=== PATIENT | male | born 1960 | race Caucasian/White ===

== ENCOUNTER 2016-12-08 13:50 | Inpatient (IN) ==
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
[2016-12-08 15:18] VITALS: BMI 65.7
--- NOTE | 2016-12-08 15:33 | IRU 24Hr Post Admit Eval ---
24 Hr Post Admission Physical - Relevant Changes Relevant Changes: No Reviewed: I have reviewed the patient's information and concur with the finding and results of the pre-admission screen. Certification: I certify the patient for rehabilitation. - Patient Condition (1) Myopathy Status: Acute Code(s): G72.9 - Myopathy, unspecified Classification: Present on IRF Admission, IRF Tx That Should Address Diagnosis (2) CHF, acute on chronic Status: Acute Qualifiers: Congestive heart failure type: unspecified congestive heart failure type Qualified Code(s): I50.9 - Heart failure, unspecified Code(s): I50.9 - Heart failure, unspecified Classification: Present on IRF Admission, IRF Tx That Should Address Diagnosis, Diagnosis Requiring Medical Follow Up (3) Atrial fibrillation with RVR Status: Acute Code(s): I48.91 - Unspecified atrial fibrillation Classification: Diagnosis Requiring Medical Follow Up, Other Contributing Factor (4) DM (diabetes mellitus), type 2 with neurological complications Status: Chronic Code(s): E11.49 - Type 2 diabetes mellitus with other diabetic neurological complication Classification: Present on IRF Admission, IRF Tx That Should Address Diagnosis, Diagnosis Requiring Medical Follow Up (5) Morbid obesity Status: Chronic Code(s): E66.01 - Morbid (severe) obesity due to excess calories Classification: Present on IRF Admission, IRF Tx That Should Address Diagnosis, Diagnosis Requiring Medical Follow Up (6) Respiratory failure, acute and chronic Status: Acute Qualifiers: Respiratory failure complication: hypoxia Qualified Code(s): J96.21 - Acute and chronic respiratory failure with hypoxia Code(s): J96.20 - Acute and chronic respiratory failure, unspecified whether with hypoxia or hypercapnia Classification: Present on IRF Admission, IRF Tx That Should Address Diagnosis, Diagnosis Requiring Medical Follow Up - Prior Functional Status Lives With: Children, Spouse Residence Type: Apartment/Private Home Assitive Devices: None Prior Functional Status: Indep. at home or school, Need assist w/ home ADL, Depend. w/ IADL, Unable to Work-2 Sx, Pain at Higher Intensity - Current Functional Status Failed Alternative Therapy: Arrived from Acute Care Patient Requirements: The patient requires oversight by rehabilitation physician to manage their rehabilitation treatment plan and multidisciplinary approach to care that can only be provided in an IRF and requires a multidisciplinary approach to care, provided by professional PTs, OTs, STs, dieticians, RTs, rehabilitation nurses and is not available in lesser levels of care. Limitiations Req: Mobility Impairment, ADL Impairment, Limited Mobility, Respiratory Impairment Physical Therapy Minutes: 90 Occupational Therapy Minutes: 90 Therapy: The patient is to receive therapy at least 5 days a week. ROM Deficit: Right Lower Extremity, Left Lower Extremity - Complications/Comorbidities Impact on Functional Outcomes: Therapy will address lower extremity dressing, transfers, ambulation and pursue energy conserving maneuvers. Barriers to Discharge: Weakness, Endurance, Pain Control, Medical Limitation - Plan to Avoid Complications Plan to Avoid Complications: The patient cannot receive this care in a lesser intensive setting such as Senior Care or Outpatient Therapy due to the patient requiring the following : Acute on chronic heart failure, acute on chronic respiratory failure, morbid obesity, diabetes mellitus with peripheral neuropathy, disuse myopathy characterized by proximal muscle weakness and severe weakness with any activity. He will require intensive individualized plan of care to involve physical therapy, occupational therapy, dietitian, rehabilitation nursing on a 24-hour basis and physician management at least 3 days weekly. .
[2016-12-08] MEDS ORDERED: GLUCOSE ORAL GEL 40% 37.5gm PO PRN (15:48)
[2016-12-08] MEDS ORDERED: ALBUTEROL/IPRATROPIUM 2.5mg-0.5mg/3ml NEB AEROSOL PRN (15:48)
[2016-12-08] MEDS ORDERED: GLUCAGON 1 MG INJECTION IM PRN (15:48)
[2016-12-08] MEDS ORDERED: LACRI-LUBE EYE OINT 3.5gm EACH EYE PRN (15:48)
[2016-12-08] MEDS ORDERED: REFRESH CLASSIC Eye Drops 0.4ml EACH EYE PRN (15:48)
[2016-12-08] MEDS ORDERED: NITROGLYCERIN 0.4 MG SUBLINGUAL TABLET SL PRN (15:48)
[2016-12-08] MEDS: Oxycodone/Apap 10/325 1 TAB PO SCH ×2 (16:41→21:18)
[2016-12-08] MEDS ORDERED: FALL RISK - PHARMACY CONSULT MC PRN (17:06)
[2016-12-08] MEDS ORDERED: RIVAROXABAN 15 MG TABLET PO SCH (17:30)
[2016-12-08] MEDS: INSULIN NPH/ASPART 70/30 MIX INJECTION SQ SCH (17:53)
[2016-12-08] MEDS ORDERED: Ipatropium/Albuterol 20/100mcg INHALER (4gm) IH SCH (19:00)
[2016-12-08] MEDS: GABAPENTIN 600 MG TABLET PO SCH (21:18)
[2016-12-08] MEDS: CALCIUM 500 + VIT D 200 TABLET PO SCH (21:18)
[2016-12-08] MEDS: DULOXETINE 60 MG CAPSULE PO SCH (21:18)
[2016-12-08] MEDS: POLYETHYL GLYCOL 3350 17gm PACKET PO SCH (21:19)
[2016-12-08] MEDS: ALBUTEROL/IPRATROPIUM 2.5mg-0.5mg/3ml NEB AEROSOL SCH (21:36)
[2016-12-09] MEDS: LEVOTHYROXINE 25 MCG TABLET PO SCH ×2 (04:24→07:55)
[2016-12-09] MEDS: ALBUTEROL/IPRATROPIUM 2.5mg-0.5mg/3ml NEB AEROSOL SCH ×4 (06:58→19:14)
[2016-12-09] MEDS: VITAMIN E 400 UNIT CAPSULE PO SCH (08:34)
[2016-12-09] MEDS: ASCORBIC ACID 500 MG TABLET PO SCH (08:35)
[2016-12-09] MEDS: Oxycodone/Apap 10/325 1 TAB PO SCH ×5 (08:35→22:23)
[2016-12-09] MEDS: CALCIUM 500 + VIT D 200 TABLET PO SCH ×3 (08:35→22:13)
[2016-12-09] MEDS: GABAPENTIN 600 MG TABLET PO SCH ×2 (08:35→22:12)
[2016-12-09] MEDS: INSULIN NPH/ASPART 70/30 MIX INJECTION SQ SCH ×2 (08:35→18:03)
[2016-12-09] MEDS: POLYETHYL GLYCOL 3350 17gm PACKET PO SCH ×2 (08:35→22:13)
--- NOTE | 2016-12-09 09:25 | Consult Note ---
<Alyx Blanco - Last Filed: 12/09/16 10:02> Consult Information - Data of Consult Patient: new to practice Consult date: 12/09/16 Requesting Physician: Julian Killian MD Primary Care Provider: Eduardo Payton DO Family Provider: Eduardo Payton DO - Consult Narrative Reason for consult: medical management of ongoing chronic medical problems- diabetes, CHF History of present illness: The patient is a 56-year-old white male with past medical history of diabetes, congestive heart failure, and atrial fibrillation who has been admitted into the rehabilitation unit following a six-day stay at [facility] for [id number] heart failure, hypoxic respiratory failure, and atrial fibrillation. Prior to his hospitalization, he had been treated outpatient with Levaquin for pneumonia. It should be noted that at home he is chronically on 4 L of O2. Despite treatment, he continued to be very short of air, at this point he was hospitalized at [facility]. While hospitalized, he had A. fib with RVR that converted on IV Cardizem. He had acute kidney injury during his stay likely secondary to Bumex used to treat his acute on chronic heart failure. He did have an echo while hospitalized, those results are not available at time of dictation. He was dismissed from [facility] doing well on 4 L of oxygen. Pertinent past medical history includes history of PE, on Xarelto. He has obstructive sleep apnea and uses home BiPAP. He has chronic pain which has been treated with fentanyl, gabapentin, and tizanidine. Morning labs are reviewed and are essentially unremarkable. 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 Bilateral total knee replacement. 2. Appendectomy. 3. Tonsillectomy. 4. Incision and drainage of scrotal fluid without infection found. 5. Heart catheterization 2. 6. Fasciotomy right lower extremity secondary to compartment syndrome (2015). 7. 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 Lowry ([place])). 8. Thyroidectomy for goiter (2014) Family History: Noncontributory - Social History Smoking status: Former smoker (smoked for 20 years. Up to 3 packs per day. 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 Current residence: Apartment/Private Home Social history: Hobbies include making webpages and playing keyboard in a [employer]. 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 Patient's PCP is Dr. Addy Payton Director Cpg is Dr. Lebron Mtz Review of Systems All systems: reviewed and no additional remarkable complaints except as stated - Cardiovascular Cardiovascular: Present: dyspnea on exertion - Respiratory Respiratory: Present: dyspnea, dyspnea on exertion - Gastrointestinal Gastrointestinal: Present: constipation - Neurological Neurological: Present: numbness, paresthesias (has bilateral peripheral decreased sensation right worse than left.) - Psychiatric Psychiatric: Present: depression (patient's had difficulty with depression for the last 34 years.) Medications Home Medications Medication Instructions Recorded Confirmed Type Duloxetine HCl [Cymbalta] 120 mg PO HS #0 07/20/11 12/08/16 History Albuterol Inhaler [Ventolin Hfa] 2 puff INH PRN PRN 12/08/16 12/08/16 History Albuterol/Ipratropium [Duoneb] 3 ml AEROSOL Q2HPRN PRN 12/08/16 12/08/16 History Albuterol/Ipratropium [Duoneb] 3 ml AEROSOL TID 12/08/16 12/08/16 History Artificial Tears [Tears Naturale] 2 drop OP TID PRN 12/08/16 12/08/16 History Ascorbate Calcium [Vitamin C] 500 mg PO DAILY 12/08/16 12/08/16 History Calcium 500 + D [Os Orion-D 500] 1 tab PO TID 12/08/16 12/08/16 History Dextrose [Glutose 15] 15 gm PO PRN PRN 12/08/16 12/08/16 History FentaNYL PATCH [Duragesic Patch] 25 mcg TD Q72H 12/08/16 12/08/16 History Gabapentin [Neurontin] 600 mg PO BID 12/08/16 12/08/16 History Glucagon [Glucagen] 1 mg IM PRN PRN 12/08/16 12/08/16 History Insulin Lispro [Humalog] 0 unit SQ ACHS 12/08/16 12/08/16 History Ipratropium/Albuterol [Combivent 1 puff INH Q4H 12/08/16 12/08/16 History Respimat Inhaler] Levothyroxine Tab [Synthroid] 25 mcg PO ACB 12/08/16 12/08/16 History Metoprolol Tartrate [Lopressor] 50 mg PO BID 12/08/16 12/08/16 History Mineral Oil/Petrolatum,White 3.5 gm OP PRN PRN 12/08/16 12/08/16 History [Refresh P.m. Ointment] Nitroglycerin [Nitrostat] 0.4 mg SL Q5M PRN 12/08/16 12/08/16 History Novolog Mix 70/30 Sq [Novolog Mix 85 unit SQ BID 12/08/16 12/08/16 History 70-30] Oxycodone/APAP 10/325 [Percocet 1 tab PO QID 12/08/16 12/08/16 History 10/325] PEG 3350 17gm PACKET [Miralax] 17 gm PO BID 12/08/16 12/08/16 History Rivaroxaban [Xarelto] 15 mg PO DAILY 12/08/16 12/08/16 History Tizanidine [Zanaflex] 4 mg PO Q8H 12/08/16 12/08/16 History Vitamin E 400 unit PO DAILY 12/08/16 12/08/16 History Allergies Allergy/AdvReac Type Severity Reaction Status Date / Time heparin Allergy Verified 12/08/16 15:17 metronidazole Allergy Verified 12/08/16 15:17 Penicillins Allergy Verified 12/08/16 15:17 warfarin [From Coumadin] Allergy Verified 12/08/16 15:17 Metronidazole HCl Allergy Uncoded 08/30/11 10:20 Exam Vital Signs: Temperature 98.4 F 12/09/16 08:30 Pulse Rate 65 12/09/16 08:30 Respiratory Rate 12 12/09/16 06:59 Blood Pressure 154/71 H 12/09/16 08:30 Pulse Oximetry 93 12/09/16 08:30 Oxygen Delivery Method Nasal Cannula Oxygen Flow Rate 4 Height: 1.75 m Weight: 201.8 kg Body Mass Index: 65.7 - Constitutional Present: no acute distress, well nourished, well developed, obese - Routine HEENT Exam Head: Present: normocephalic, atraumatic Eye: Present: EOMI ENT: Present: mucous membranes moist, dentition normal - Routine Neck Exam Present: supple, full ROM - Routine Respiratory Exam Present: decreased breath sounds, CTA bilaterally, distant breath sounds, diminished air movement. Absent: wheezes - Routine Cardiovascular Exam Present: RRR, S1, S2. Absent: murmur - Routine Abdominal Exam Present: soft, normoactive bowel sounds, non distended. Absent: tenderness - Routine Extremities Exam Present: edema (mild edema to left lower extremity), normal capillary refill Comments: Right lower extremity with significant scarring from previous fasciotomy Left Charcot foot - Routine Skin Exam Present: dry, warm - Routine Neurological Exam Present: alert, oriented X3, CN II-XII intact - Routine Psychiatric Exam Present: normal affect, normal thought process Results - Labs CBC & Chem 7: 12/09/16 04:33 12/09/16 04:33 Assessment and Plan (1) Respiratory failure, acute and chronic Current visit: Yes Status: Acute (2) Debility Current visit: Yes Status: Acute DVT Prophylaxis: Xarelto Resuscitation Status: Full Code Assessment and Plan: Assessment: 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 Home requirements 4 L. Continue scheduled and when necessary DuoNeb breathing treatments Monitor routine Accu-Cheks. Currently taking 85 units NovoLog 70/30 twice a day. Will adjust insulin as needed. Will follow daily weights, renal function and electrolytes given his recent heart failure exacerbation. We'll monitor pulse and blood pressure and continue on metoprolol. Continue Xarelto given history of PE. Dr. Killian to manage pain medication for chronic pain. Continue chronic meds for chronic health conditions. The hospitalist team will continue to medically manage patient throughout his stay. Hospital Course Summary Disclaimer: The visit summary below is not to be considered part of the above Progress Note. Sepsis Assessment - Evaluation Sepsis screening result: No Definite Risk <Mc Mclaughlin D - Last Filed: 12/09/16 21:02> Consult Information - Data of Consult Requesting Physician: Julian Killian MD Primary Care Provider: Eduardo Payton DO Family Provider: Eduardo Payton DO [facility] Patient Stated Medical History Angina Yes Congestive Heart Failure Yes Coronary Artery Disease Yes Hypertension Yes Other Cardiology Yes: A-fib (recent RVR) Pneumonia Yes Sleep Apnea Yes Other Respiratory O2 at home Diabetes Mellitus Type 2 Yes Constipation No Other Yes: acute kidney disease Other Musculoskeletal Yes: arthritis, Lt ankle charcot joint Other Yes: I&D ingrown hair x2, Fasciotomy Rt leg with graft, Interlateral sphincter Exam Vital Signs: Temperature 97.6 F 12/09/16 17:47 Pulse Rate 58 L 12/09/16 17:47 Respiratory Rate 18 12/09/16 19:14 Blood Pressure 138/67 12/09/16 17:47 Pulse Oximetry 92 12/09/16 19:19 Oxygen Delivery Method Nasal Cannula Oxygen Flow Rate 4 Height: 1.75 m Weight: 203.2 kg Results - Labs CBC & Chem 7: 12/09/16 04:33 12/09/16 04:33 Assessment and Plan (1) Respiratory failure, acute and chronic Current visit: Yes Status: Acute (2) Debility Current visit: Yes Status: Acute Assessment and Plan: Have independently interviewed and examined pt. Chart reviewed. Case discussed with my PA. Above care plan developed with my supervision; agree with above. Doing okay today. Tolerated therapy-hard work. Notes breathing still very short and congested. Hard to take deep breath. Frequent cough. No sinus congestion or pressure. No nausea, but noted appetite decreased. Stools slow during hospitalization in [place]-starting to move. Lungs: decreased breath sounds bilaterally, decreased air movement. Frequent cough. CV: regular AB: soft nt/nd BS decreased MSE: awake alert appropriate Plan: Will add Acapella to help loosen secretions. Continue Neb treatments and supplemental O2. Continue home medications. Monitor blood sugars and weights. Encourage therapy. Medically stable for IRU floor activities. Hospital Course Summary Disclaimer: The visit summary below is not to be considered part of the above Progress Note.
--- NOTE | 2016-12-09 11:10 | IRU Progress Note ---
- Subjective/Serverity of Illness Maxi was evaluated in his room shortly after therapy. He states that he is very winded and exhausted. He is walking 12 feet today with standby assist. His transfers were with supervision. He walked stairs with contact-guard assist. He states that he continues to produce some sputum in the mornings. Denies actual chest pain but does have a sensation that he can't take a full deep satisfying breath. Does have dyspnea with activity. Visited with the nurses and the patient together today. He would like his pain medications given prior to his therapy and I think that is reasonable. We will change that regimen. Appreciate the hospitalist's input and management of medical issues overall. Finally, we discussed the importance of dietary management and reduction in total caloric intake. Exam Vital Signs: Temperature 98.4 F 12/09/16 08:30 Pulse Rate 65 12/09/16 08:30 Respiratory Rate 12 12/09/16 06:59 Blood Pressure 154/71 H 12/09/16 08:30 Pulse Oximetry 93 12/09/16 08:30 Oxygen Delivery Method Nasal Cannula Oxygen Flow Rate 4 Height: 1.75 m Weight: 201.8 kg Body Mass Index: 65.7 - Constitutional Present: mild distress, morbidly obese Comments: The patient is awake, alert and oriented and appears to be fatigued and somewhat dyspneic. He is not diaphoretic. Pupils are equal. The neck is supple. Chest: Clear to auscultation bilaterally, with markedly diminished breath sounds. No wheezes are heard at present. Cor: RR with no marianela, click nor murmur Abd: soft with normo-active bowel sounds. There are no masses, no tenderness and no guarding. The abdomen is obese. Extremities: No edema is noted. . - Routine HEENT Exam Head: Present: normocephalic Eye: Present: EOMI, PERRL ENT: Present: mucous membranes moist - Routine Neck Exam Present: supple, full ROM - Routine Respiratory Exam Present: dyspnea, decreased breath sounds - Routine Cardiovascular Exam Present: RRR, S1, S2, no murmur - Routine Abdominal Exam Present: soft, normoactive bowel sounds, non distended, non tender. Absent: distended, rebound - Routine Extremities Exam Present: no edema - Routine Skin Exam Present: intact, dry. Absent: erythema - Routine Neurological Exam Present: alert, oriented X3, CN II-XII intact - Routine Psychiatric Exam Present: normal affect, cooperative. Absent: good insight (concerned that he does not have good insight with regard to his oral intake and obesity being a factor in his progress.) Results IRU - Labs Labs: Reviewed the outpatient CT scan (CT angiogram) on November 04 at [facility]. This showed some basilar bilateral bronchopneumonia findings but no evidence of pulmonary embolus. In addition, reviewed the chest x-ray report from [facility] on 12/04/2016 demonstrating predominantly interstitial edema and no evidence of pneumonia. We have requested the echocardiogram which is pending from [place]. Sepsis Assessment - Evaluation Sepsis screening result: No Definite Risk IRU A/P (1) Myopathy Current visit: Yes Status: Acute Has evidence for disuse myopathy secondary to prolonged bed rest and hospitalization along with proximal muscle weakness. Therapies are addressing this with regard to transfers and ambulation etc. His walking distance has improved to 12 feet. He does require contact-guard assist for stairs. His dyspnea and poor endurance are significant barriers to improvement. (2) CHF, acute on chronic Qualifiers: Congestive heart failure type: unspecified congestive heart failure type Qualified Code(s): I50.9 - Heart failure, unspecified Current visit: Yes Status: Acute He is reported to have heart failure. We are awaiting echocardiogram report to decide if this is systolic or diastolic etc. (3) Atrial fibrillation with RVR Current visit: Yes Status: Acute Seems to be in a regular rhythm at the present time. (4) DM (diabetes mellitus), type 2 with neurological complications Current visit: Yes Status: Chronic Blood sugars are being monitored. Initial blood sugar is 112. (5) Morbid obesity Current visit: Yes Status: Chronic His morbid obesity is a significant barrier to his progress. I discussed this with the dietitian as well as with the patient. (6) Respiratory failure, acute and chronic Qualifiers: Respiratory failure complication: hypoxia Qualified Code(s): J96.21 - Acute and chronic respiratory failure with hypoxia Current visit: Yes Status: Acute He has had acute on chronic respiratory failure. He is on chronic oxygen therapy at 4 L/m. However while at [facility] he required increased flow of oxygen. At the present time he has back to baseline apparently. DVT Prophylaxis: Xarelto Resuscitation Status: Full Code - Course Hospital Course: Julian Killian MD: 12/09/16 11:17 Therapies are addressing his poor exercise tolerance, endurance, and myopathy. He is able to walk 12 feet today with standby assist. Stairs require contact- guard assist. Dietitian is involved with regard to meal planning and recommendations. Appreciate hospitalists involvement. - Interventions to Obtain Goals PT Treatment Plan: Balance/Proprioception, Functional Activities, Gait Training , Patient/Family Education, Therapeutic Exercise OT Treatment Plan: ADL (Basic Care), Balance Training, IADL, Pt./Family Education, Ther. Exercise for ADL
--- NOTE | 2016-12-09 12:24 | IRU Plan of Care ---
[facility] Overall Plan of Care - Date Date: 12/09/16 - Patient Impairments (1) Respiratory failure, acute and chronic Qualifiers: Respiratory failure complication: hypoxia Qualified Code(s): J96.21 - Acute and chronic respiratory failure with hypoxia Code(s): J96.20 - Acute and chronic respiratory failure, unspecified whether with hypoxia or hypercapnia Status: Acute Classification: Present on IRF Admission, IRF Tx That Should Address Diagnosis, Diagnosis Requiring Medical Follow Up (2) Debility Code(s): R53.81 - Other malaise Status: Acute Classification: Present on IRF Admission, IRF Tx That Should Address Diagnosis - Relevant Changes Relevant Changes: No Reviewed: I have reviewed the patient's information and concur with the finding and results of the pre-admission screen. Certification: I certify the patient for rehabilitation. - Medical Prognosis Medical Prognosis: Good Vital Signs: Last Vital Signs Temp 98.4 F 12/09/16 08:30 Pulse 65 12/09/16 08:30 Resp 12 12/09/16 11:09 BP 154/71 H 12/09/16 08:30 Pulse Ox 93 12/09/16 08:30 - Anticipated Interventions Anticipated Interventions: The patient requires inpatient IRF care for PT, OT, and/or ST for residuals remaining from [] resulting in muscular weakness and strength deficits. Strength Deficits: Right Lower Extremity, Left Lower Extremity - FIM Ambulation Distance: 20 Toileting Adaptive Equipment: Grab Bars - Current Functional Status Failed Alternative Therapy: Arrived from Acute Care Patient Requires: The patient requires oversight by rehabilitation physician to manage their rehabilitation treatment plan and multidisciplinary approach to care that can only be provided in an IRF and requires a multidisciplinary approach to care, provided by professional PTs, OTs, STs, dieticians, RTs, rehabilitation nurses and is not available in lesser levels of care. Physical Therapy Minutes: 90 Occupational Therapy Minutes: 90 Therapy: The patient is to receive therapy at least 5 days a week. - Anticipated LOS/Outcomes Anticipated Functional Outcome: It is anticipated the patient will be able to return to his home at a modified independent to independent status. He is required to take care of his 5-year- old grandson during the day when his works. He will need to be able to dress himself independently, ambulate an adequate distance and be able to provide ADLs for himself without significant dyspnea. Anticipated DC Destination: Home, Self Residential Safety Plan: The patient will be provided with the development of a Home Safety Plan for return to a home or home-like environment and and to ensure safety post discharge. - Plan to Avoid Complications Barriers to Attaining Goals: Weakness, Endurance, Medical Limitation Plan to Avoid Complications: The patient cannot receive this care in a lesser intensive setting such as [facility] or Outpatient Therapy due to the patient requiring the following : Heart failure with interstitial edema and significant shortness of breath with activity. Recent lung infection with continued cough and sputum, as well as acute on chronic respiratory failure (hypoxia), all requiring medical supervision and nursing monitoring of his oxygen saturation and cardiac status. He also has right foot drop and is at increased risk for falling in view of recent (about 6 months ago) fasciotomy and numbness involving the right foot. Also has chronic back pain and left ankle pain requiring medical management and resulting in increased risk for falls. Each of these medical issues impact his ability to regain his former level of functioning and require a multidisciplinary approach from physical therapy, occupational therapy, dietitian, case management, nursing and medicine..
--- NOTE | 2016-12-09 12:29 | Progress Note ---
Progress Note: Echocardiogram report from [facility] dated 12/06/2016 is reviewed in detail. He does not have significant valvular abnormalities. Left ventricular contractility and wall motion are normal. Ejection fraction is estimated at 61%. No pericardial effusion is seen. Does not have evidence of pulmonary hypertension.
[2016-12-09] MEDS: RIVAROXABAN 15 MG TABLET PO SCH (18:02)
[2016-12-09] MEDS: DULOXETINE 60 MG CAPSULE PO SCH (22:12)
[2016-12-10] MEDS: LEVOTHYROXINE 25 MCG TABLET PO SCH (06:11)
[2016-12-10] MEDS: ALBUTEROL/IPRATROPIUM 2.5mg-0.5mg/3ml NEB AEROSOL SCH ×4 (07:07→20:27)
[2016-12-10] MEDS: Oxycodone/Apap 10/325 1 TAB PO SCH ×5 (07:22→20:54)
[2016-12-10] MEDS: INSULIN NPH/ASPART 70/30 MIX INJECTION SQ SCH ×2 (08:29→17:52)
[2016-12-10] MEDS: VITAMIN E 400 UNIT CAPSULE PO SCH (08:30)
[2016-12-10] MEDS: GABAPENTIN 600 MG TABLET PO SCH ×2 (08:30→20:51)
[2016-12-10] MEDS: ASCORBIC ACID 500 MG TABLET PO SCH (08:30)
[2016-12-10] MEDS: POLYETHYL GLYCOL 3350 17gm PACKET PO SCH ×2 (08:30→20:50)
[2016-12-10] MEDS: CALCIUM 500 + VIT D 200 TABLET PO SCH ×3 (08:30→20:51)
[2016-12-10] MEDS: RIVAROXABAN 15 MG TABLET PO SCH (17:52)
[2016-12-10] MEDS: DULOXETINE 60 MG CAPSULE PO SCH ×2 (20:51→22:28)
[2016-12-10] MEDS: SENNA + DOCUSATE TABLET PO SCH (20:52)
[2016-12-11] MEDS: LEVOTHYROXINE 25 MCG TABLET PO SCH ×2 (05:19→21:24)
[2016-12-11] MEDS: ALBUTEROL/IPRATROPIUM 2.5mg-0.5mg/3ml NEB AEROSOL SCH ×4 (07:07→18:40)
[2016-12-11] MEDS: Oxycodone/Apap 10/325 1 TAB PO SCH ×5 (07:31→21:30)
[2016-12-11] MEDS: ASCORBIC ACID 500 MG TABLET PO SCH (10:22)
[2016-12-11] MEDS: CALCIUM 500 + VIT D 200 TABLET PO SCH ×3 (10:23→21:30)
[2016-12-11] MEDS: SENNA + DOCUSATE TABLET PO SCH ×2 (10:23→21:30)
[2016-12-11] MEDS: VITAMIN E 400 UNIT CAPSULE PO SCH (10:23)
[2016-12-11] MEDS: GABAPENTIN 600 MG TABLET PO SCH ×2 (10:24→21:30)
[2016-12-11] MEDS: POLYETHYL GLYCOL 3350 17gm PACKET PO SCH ×2 (10:24→21:29)
[2016-12-11] MEDS: INSULIN NPH/ASPART 70/30 MIX INJECTION SQ SCH ×2 (10:25→18:01)
--- NOTE | 2016-12-11 11:38 | Progress Note ---
Subjective: Mr. Nicole was seen after finishing his breakfast. He exhibits conversational dyspnea. He has a cough, but doesn't bring a whole lot. He feels tight all over , even into his abdomen and torso and back. He has chronic swelling to his right leg ever since having a fasciotomy, but it is more pronounced to the right leg as well as to the left. He denies any abdominal pain or GI complaints. His appetite has been good. Objective Vital signs: Temperature 97.8 F 12/11/16 00:43 Pulse Rate 64 12/11/16 08:44 Respiratory Rate 16 12/11/16 10:30 Blood Pressure 156/77 H 12/11/16 08:44 Pulse Oximetry 96 12/11/16 08:44 Oxygen Delivery Method Nasal Cannula Oxygen Flow Rate 4 Weight: 204.8 kg - Constitutional Present: mild distress, morbidly obese - Routine HEENT Exam Head: Present: normocephalic, atraumatic Eye: Absent: conjunctival icterus ENT: Present: oropharynx clear - Routine Respiratory Exam Present: rales, diminished air movement - Routine Cardiovascular Exam Present: S1, S2, tachycardia - Routine Abdominal Exam Present: normoactive bowel sounds, non tender, distended - Routine Extremities Exam Present: edema (bilateral lower extremity, right greater than left. gaping fasciotomy scar to right lateral anterior waller.) Comments: Pitting edema into the back and lower rib cage - Routine Musculoskeletal Exam Musculoskeletal: Present: limited range of motion - Routine Skin Exam Present: intact, dry, warm - Routine Neurological Exam Present: alert, oriented X3 - Routine Psychiatric Exam Present: normal affect, normal thought process Results - Labs CBC & Chem 7: 12/09/16 04:33 12/11/16 11:57 Assessment and Plan (1) Respiratory failure, acute and chronic Current visit: Yes Status: Acute (2) Debility Current visit: Yes Status: Acute DVT Prophylaxis: Xarelto Resuscitation Status: Full Code Assessment and Plan: Assessment: 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 Suspect he will need diuresis. Continue daily weights. Reassess BMP because of recent acute kidney injury. Blood sugars have been under fairly good control on NovoLog 70/30 twice a day. He had a couple hypoglycemic readings earlier in his rehabilitation course, but this has improved. CXR reviewed - pulmonary congestion. Layering of over right hemidiaphragm - Dr. Wadsworth reviewed CXR from [facility], which showed elevation of right hemidiaphragm but we were unable to appreciate the layering appearance seen on today's 2-view film. BMP - renal function fairly intact but K is 5.5. Dr. Wadsworth suspects proximal ATN (frequently seen in diabetics who are taken off diuretics). If no improvement by tomorrow and bicarb is abnormal, we could start Bumex + bicarb gtt. Plan - give Bumex 2 mg PO now and start 1 mg BID tomorrow. Recheck BMP in am. Sepsis Assessment - Evaluation Sepsis screening result: No Definite Risk Hospital Course Summary Disclaimer: The visit summary below is not to be considered part of the above Progress Note. 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 Suspect he will need diuresis. Continue daily weights. Reassess BMP because of recent acute kidney injury. Blood sugars have been under fairly good control on NovoLog 70/30 twice a day. He had a couple hypoglycemic readings earlier in his rehabilitation course, but this has improved. CXR reviewed - pulmonary congestion. Layering of over right hemidiaphragm - Dr. Wadsworth reviewed CXR from [facility], which showed elevation of right hemidiaphragm but we were unable to appreciate the layering appearance seen on today's 2-view film. BMP - renal function fairly intact but K is 5.5. Dr. Wadsworth suspects proximal ATN (frequently seen in diabetics who are taken off diuretics). If no improvement by tomorrow and bicarb is abnormal, we could start Bumex + bicarb gtt. Plan - give Bumex 2 mg PO now and start 1 mg BID tomorrow. Recheck BMP in am.
[2016-12-11] MEDS ORDERED: BUMETANIDE 1 MG TABLET PO ONE (12:19)
[2016-12-11] MEDS: BUMETANIDE 1 MG TABLET PO SCH (15:20)
[2016-12-11] MEDS: RIVAROXABAN 15 MG TABLET PO SCH (18:00)
[2016-12-11] MEDS: DULOXETINE 60 MG CAPSULE PO SCH (21:30)
[2016-12-12] MEDS: BUMETANIDE 1 MG TABLET PO SCH ×2 (06:14→14:42)
[2016-12-12] MEDS: LEVOTHYROXINE 25 MCG TABLET PO SCH (06:14)
[2016-12-12] MEDS: ALBUTEROL/IPRATROPIUM 2.5mg-0.5mg/3ml NEB AEROSOL SCH ×3 (07:05→20:10)
[2016-12-12] MEDS: POLYETHYL GLYCOL 3350 17gm PACKET PO SCH ×2 (09:01→21:19)
[2016-12-12] MEDS: ASCORBIC ACID 500 MG TABLET PO SCH (09:03)
[2016-12-12] MEDS: VITAMIN E 400 UNIT CAPSULE PO SCH (09:03)
[2016-12-12] MEDS: SENNA + DOCUSATE TABLET PO SCH ×2 (09:03→21:23)
[2016-12-12] MEDS: GABAPENTIN 600 MG TABLET PO SCH ×2 (09:03→21:22)
[2016-12-12] MEDS: Oxycodone/Apap 10/325 1 TAB PO SCH ×4 (09:10→21:18)
[2016-12-12] MEDS: acetaZOLAMIDE 250 MG TABLET PO SCH ×2 (09:10→17:23)
[2016-12-12] MEDS: INSULIN NPH/ASPART 70/30 MIX INJECTION SQ SCH ×2 (09:13→17:23)
--- NOTE | 2016-12-12 10:06 | Progress Note ---
Subjective: Dionicio was seen during breakfast. He speaks in full sentences today, and states his breathing is better. He rested well for a few hour-blocks at a time, but was awakened for numerous times to urinate and to have VS or labs checked. Nonetheless, he feels fairly well rested this am. Denies any chest pain. No abdominal pain or nausea. Discussed labs and plan with him, and he's in agreement with diuresis. He used to take Bumex 2mg PO PRN at home, which equated to about every other day. Objective Vital signs: Temperature 98.0 F 12/11/16 22:41 Pulse Rate 65 12/12/16 08:47 Respiratory Rate 18 12/12/16 08:47 Blood Pressure 144/71 H 12/12/16 08:47 Pulse Oximetry 93 12/12/16 08:47 Oxygen Delivery Method Nasal Cannula Oxygen Flow Rate 4 Weight: 204.8 kg - Constitutional Present: no acute distress, well nourished, well developed, morbidly obese - Routine HEENT Exam Head: Present: normocephalic Eye: Absent: conjunctival icterus ENT: Present: mucous membranes moist - Routine Respiratory Exam Present: decreased breath sounds (improved air movement compared to yesterday), crackles (improving bibasilar crackles) - Routine Cardiovascular Exam Present: RRR, S1, S2 - Routine Abdominal Exam Present: normoactive bowel sounds, non tender, distended - Routine Extremities Exam Present: edema (b/l, R>L chronic) Comments: fasciotomy scars to RLE - Routine Musculoskeletal Exam Musculoskeletal: Present: limited range of motion (d/t body habitus) - Routine Skin Exam Present: intact, dry, warm - Routine Neurological Exam Present: alert, oriented X3 - Routine Psychiatric Exam Present: normal affect, normal thought process Results - Labs CBC & Chem 7: 12/09/16 04:33 12/12/16 03:52 Assessment and Plan (1) Respiratory failure, acute and chronic Current visit: Yes Status: Acute (2) Debility Current visit: Yes Status: Acute DVT Prophylaxis: Xarelto Resuscitation Status: Full Code Assessment and Plan: Assessment: Acute on Chronic hypoxic respiratory failure Hypernatremia 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 Today we'll start 1 mg and mg at 1400. He reports his take Bumex 2 mg at home on a when necessary basis, which actually equated to about every other day. Potassium has returned to normal value. Post Bumex dosing. It is 4.8. Creatinine bumped slightly to 1.6. Bicarbonate also increased. Dr. Wadsworth has already ordered Diamox BID. Sodium has increased to 145. Will repeat BMP in am to monitor renal function, bicarb, and sodium level. May need to adjust diuretic dosing. Overall, BGM under fairly good control (one erroneous reading >200 yesterday before lunch). Change frequency of BGM to fasting and 2 hours PP. Sepsis Assessment - Evaluation Sepsis screening result: No Definite Risk Hospital Course Summary Disclaimer: The visit summary below is not to be considered part of the above Progress Note. 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 Suspect he will need diuresis. Continue daily weights. Reassess BMP because of recent acute kidney injury. Blood sugars have been under fairly good control on NovoLog 70/30 twice a day. He had a couple hypoglycemic readings earlier in his rehabilitation course, but this has improved. CXR reviewed - pulmonary congestion. Layering of over right hemidiaphragm - Dr. Wadsworth reviewed CXR from [facility], which showed elevation of right hemidiaphragm but we were unable to appreciate the layering appearance seen on today's 2-view film. BMP - renal function fairly intact but K is 5.5. Dr. Wadsworth suspects proximal ATN (frequently seen in diabetics who are taken off diuretics). If no improvement by tomorrow and bicarb is abnormal, we could start Bumex + bicarb gtt. Plan - give Bumex 2 mg PO now and start 1 mg BID tomorrow. Recheck BMP in am. Discussed with Chiara; agree with diuresis, will monitor outputs after 2 mg dose today (po; he does not have IV access currently). Will order 1 mg BID bumex for tomorrow and can increase to 2 mg if needed. 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 Will monitor and adjust tomorrow, recheck labs in AM and follow weights and outputs. 12/12/16 10:15 Symptomatic and clinical improvement post oral diuresis with Bumex. Today we'll start 1 mg and mg at 1400. He reports his take Bumex 2 mg at home on a when necessary basis, which actually equated to about every other day. Potassium has returned to normal value. Post Bumex dosing. It is 4.8. Creatinine bumped slightly to 1.6. Bicarbonate also increased. Dr. Wadsworth has already ordered Diamox BID. Sodium has increased to 145. Will repeat BMP in am to monitor renal function, bicarb, and sodium level. May need to adjust diuretic dosing. Overall, BGM under fairly good control (one erroneous reading >200 yesterday before lunch). Change frequency of BGM to fasting and 2 hours PP.
--- NOTE | 2016-12-12 10:47 | XRay Report ---
INDICATION: short of breath; crackles b/l; hx CHF PROCEDURE: CHEST 2-VIEWS UPRIGHT (PA & LAT) Encounter: Initial COMPARISON: CT angiogram of the chest dated November 04, 2016 FINDINGS: New prominence of the pulmonary vascular system. No focal lobar consolidation. No pneumothorax. Probable small effusions. Cardiac silhouette remains enlarged. Mediastinal contours are stable. Surgical clips in the lower neck. Impression: Moderate pulmonary edema, probably due to CHF. .
[2016-12-12] MEDS: RIVAROXABAN 15 MG TABLET PO SCH (17:23)
[2016-12-12] MEDS: DULOXETINE 60 MG CAPSULE PO SCH (21:20)
[2016-12-13] MEDS: BUMETANIDE 1 MG TABLET PO SCH (06:22)
[2016-12-13] MEDS: LEVOTHYROXINE 25 MCG TABLET PO SCH (06:22)
[2016-12-13] MEDS: ASCORBIC ACID 500 MG TABLET PO SCH (08:29)
[2016-12-13] MEDS: GABAPENTIN 600 MG TABLET PO SCH ×2 (08:29→20:40)
[2016-12-13] MEDS: acetaZOLAMIDE 250 MG TABLET PO SCH (08:29)
[2016-12-13] MEDS: INSULIN NPH/ASPART 70/30 MIX INJECTION SQ SCH ×2 (08:30→17:42)
[2016-12-13] MEDS: POLYETHYL GLYCOL 3350 17gm PACKET PO SCH ×2 (08:30→20:39)
[2016-12-13] MEDS: SENNA + DOCUSATE TABLET PO SCH ×2 (08:31→20:40)
[2016-12-13] MEDS: Oxycodone/Apap 10/325 1 TAB PO SCH ×4 (08:31→20:40)
[2016-12-13] MEDS: VITAMIN E 400 UNIT CAPSULE PO SCH (08:31)
--- NOTE | 2016-12-13 09:48 | IRU Progress Note ---
- Subjective/Serverity of Illness Maxi was evaluated in his room today. He is progressing with therapy. However medically he continues to have significant fatigue and reduced endurance with activity. In addition he continues to complain of pain in the ankle and the back. Please see discussion below in this regard. He states that he is unable to take a full, deep, satisfying breath. Continues to cough up some sputum which is a bit dark. Quantity of sputum appears to be improving/S. He denies any chest pains. He states that he is walking about 17 feet with some rest breaks. Previously was 12 feet. He is walking with a walker. Continues to progress with occupational therapy as well. I did discuss with him his pain management situation. At home he was on 50 g fentanyl patch every 3 days. He is working with a pain management team and they decreased his fentanyl patch to 25 g but added on regular doses of Percocet. This was a fairly recent decision and in view of this, after discussing with the patient and considering the options, I recommended that he continue the current pain management plan which be 25 g fentanyl patch plus Percocet. He continues to complain of pain at a 5-6 in the ankle and back at times as well. He states that his bowels are moving adequately. His appetite is good. We'll continue to encourage reduced caloric intake in an effort to reduce his weight. Finally, he has been undergoing diuresis with improvement. Unfortunately his creatinine has bumped up a bit at 2.1. Bumex has been decreased in this regard. Exam Vital Signs: Temperature 98.2 F 12/13/16 07:30 Pulse Rate 69 12/13/16 07:30 Respiratory Rate 14 12/13/16 07:30 Blood Pressure 136/70 12/13/16 07:30 Pulse Oximetry 99 12/13/16 07:30 Oxygen Delivery Method Nasal Cannula Oxygen Flow Rate 4 Height: 1.75 m Weight: 197.4 kg Body Mass Index: 65.7 - Constitutional Present: mild distress, morbidly obese Comments: The patient is awake, alert and oriented and in mild distress regarding his pain. Pupils are equal. The neck is supple. Chest: Clear to auscultation bilaterally. Cor: RR with no marianela, click nor murmur Abd: soft, obese, with normo-active bowel sounds. There are no masses, no tenderness and no guarding. Extremities: No edema is noted. I reviewed his sputum which he has collected in a plastic specimen container. - Routine HEENT Exam Head: Present: normocephalic Eye: Present: EOMI ENT: Present: mucous membranes moist - Routine Neck Exam Present: supple - Routine Respiratory Exam Present: decreased breath sounds, CTA bilaterally - Routine Cardiovascular Exam Present: RRR, S1, S2, no murmur - Routine Abdominal Exam Present: soft, normoactive bowel sounds, non distended, non tender - Routine Skin Exam Present: intact. Absent: erythema - Routine Neurological Exam Present: alert, oriented X3, CN II-XII intact - Routine Psychiatric Exam Present: normal affect, normal thought process, cooperative Results IRU - Labs Labs: Reviewed his laboratory findings indicating elevation in his creatinine compared to baseline. This is likely acute kidney injury related to his diuresis. In this regard, the Bumex has been decreased. Sepsis Assessment - Evaluation Sepsis screening result: No Definite Risk IRU A/P (1) Respiratory failure, acute and chronic Qualifiers: Respiratory failure complication: hypoxia Qualified Code(s): J96.21 - Acute and chronic respiratory failure with hypoxia Current visit: Yes Status: Acute Barriers to discharge included his poor exercise endurance and dyspnea with activity. Continues to cough up some sputum. However the lungs are clear with diminished breath sounds. Continue efforts at weight reduction will be important in order to improve his endurance and exercise tolerance. (2) Debility Current visit: Yes Status: Acute (3) Morbid obesity Current visit: Yes Status: Chronic Blood sugars are noted. Management per medical team. (4) DM (diabetes mellitus), type 2 with neurological complications Current visit: Yes Status: Chronic (5) Acute kidney injury Current visit: Yes Status: Acute Creatinine has bumped up a bit related to diuresis most likely. I have reviewed his medications as well. Bumex has been reduced. (6) Back pain at L4-L5 level Current visit: Yes Status: Chronic He does have chronic back pain as well as ankle pain. We discussed this in detail with the patient. Please see above discussion. Medical decision making included the question of whether to increase his fentanyl patch back up or not. In view of the recent change instituted by his pain management team, I recommend keeping the fentanyl patch were we are and continuing the Percocet. Hopefully with reduced weight and increased activity his pain will be controlled adequately. DVT Prophylaxis: Xarelto Resuscitation Status: Full Code - Course Hospital Course: Julian Killian MD: 12/09/16 11:17 Therapies are addressing his poor exercise tolerance, endurance, and myopathy. He is able to walk 12 feet today with standby assist. Stairs require contact- guard assist. Dietitian is involved with regard to meal planning and recommendations. Appreciate hospitalists involvement. 12/13/16 09:53 Creatinine is acutely increased related to diuresis most likely. Bumex has been decreased in this regard. Continues to complain of pain in the ankle and back at a 5-6 level. Decided to keep fentanyl patch were we are. Please see above discussion. He is progressing with therapy and is ambulatory distance is improved. Barriers to discharge included his dyspnea, poor conditioning and his pain. - Interventions to Obtain Goals PT Treatment Plan: Balance/Proprioception, Functional Activities, Gait Training , Patient/Family Education, Therapeutic Exercise OT Treatment Plan: ADL (Basic Care), Balance Training, IADL, Pt./Family Education, Ther. Exercise for ADL Goals Progress/Modifications: He is progressing toward his goals. Medically he does have the elevated creatinine consistent with acute kidney injury but this is been addressed. In addition he does have diabetes and we are monitoring his blood sugars. Reassess tomorrow at team meeting with regard to dismissal.
--- NOTE | 2016-12-13 09:49 | Progress Note ---
<AnpuamaChiara Cathy - Last Filed: 12/13/16 10:13> Subjective: Dionicio was working with therapy in his room. He still didn't sleep well last night - between frequent urinating (from diuretics) and being awakened for VS, breathing treatments, and labs, he barely slept at all. The good news is that his breathing is much better and he doesn't feel as tight or swollen. His weight has decreased from 204.8. kg to 197.4 kg. Unfortunately his renal function worsened since yesterday, and he noted that his creatinine tends to jump quickly. We discussed the treacherous balance between fluid status and renal function, and he understood the difficulty in comanaging these conditions. He agrees with holding Bumex for now. Objective Vital signs: Temperature 98.2 F 12/13/16 07:30 Pulse Rate 69 12/13/16 07:30 Respiratory Rate 14 12/13/16 07:30 Blood Pressure 136/70 12/13/16 07:30 Pulse Oximetry 99 12/13/16 07:30 Oxygen Delivery Method Nasal Cannula Oxygen Flow Rate 4 Weight: 197.4 kg - Constitutional Present: no acute distress, well nourished, well developed, morbidly obese - Routine HEENT Exam Eye: Absent: conjunctival icterus ENT: Present: mucous membranes moist, oropharynx clear - Routine Respiratory Exam Present: CTA bilaterally. Absent: rales, wheezes - Routine Cardiovascular Exam Present: S1, S2 - Routine Abdominal Exam Present: normoactive bowel sounds, non tender - Routine Extremities Exam Present: edema (B/L LE) - Routine Back/Spine/Pelvis Exam Back/Spine: Absent: kyphosis - Routine Musculoskeletal Exam Musculoskeletal: Present: limited range of motion (secondary to body habitus) - Routine Skin Exam Present: intact, dry, warm - Routine Neurological Exam Present: alert, oriented X3 - Routine Psychiatric Exam Present: normal affect, normal thought process Results - Labs CBC & Chem 7: 12/09/16 04:33 12/13/16 04:53 Assessment and Plan (1) Respiratory failure, acute and chronic Current visit: Yes Status: Acute (2) Debility Current visit: Yes Status: Acute Assessment and Plan: Assessment: Acute on Chronic hypoxic respiratory failure Hypernatremia 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 Breathing much easier and lungs are clear today. However, creatinine increased from 1.6 to 2.1 and Bicarb went up from 37 to 39 despite addition of diamox yesterday. Discussed with Dr. Wadsworth - recommends holding Bumex and diamox and rechecking BMP in am. Na still slightly high at 145 - monitor for now. BGM changed to postprandial - elevations noted after breakfast (218) and after lunch (160). Will follow today to determine if increasing morning dose of insulin 70/30 may be helpful. Sepsis Assessment - Evaluation Sepsis screening result: No Definite Risk Hospital Course Summary Disclaimer: The visit summary below is not to be considered part of the above Progress Note. 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 Suspect he will need diuresis. Continue daily weights. Reassess BMP because of recent acute kidney injury. Blood sugars have been under fairly good control on NovoLog 70/30 twice a day. He had a couple hypoglycemic readings earlier in his rehabilitation course, but this has improved. CXR reviewed - pulmonary congestion. Layering of over right hemidiaphragm - Dr. Wadsworth reviewed CXR from [facility], which showed elevation of right hemidiaphragm but we were unable to appreciate the layering appearance seen on today's 2-view film. BMP - renal function fairly intact but K is 5.5. Dr. Wadsworth suspects proximal ATN (frequently seen in diabetics who are taken off diuretics). If no improvement by tomorrow and bicarb is abnormal, we could start Bumex + bicarb gtt. Plan - give Bumex 2 mg PO now and start 1 mg BID tomorrow. Recheck BMP in am. Discussed with Chiara; agree with diuresis, will monitor outputs after 2 mg dose today (po; he does not have IV access currently). Will order 1 mg BID bumex for tomorrow and can increase to 2 mg if needed. 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 Will monitor and adjust tomorrow, recheck labs in AM and follow weights and outputs. 12/12/16 Symptomatic and clinical improvement post oral diuresis with Bumex. Today we'll start 1 mg and mg at 1400. He reports his take Bumex 2 mg at home on a when necessary basis, which actually equated to about every other day. Potassium has returned to normal value. Post Bumex dosing. It is 4.8. Creatinine bumped slightly to 1.6. Bicarbonate also increased. Dr. Wadsworth has already ordered Diamox BID. Sodium has increased to 145. Will repeat BMP in am to monitor renal function, bicarb, and sodium level. May need to adjust diuretic dosing. Overall, BGM under fairly good control (one erroneous reading >200 yesterday before lunch). Change frequency of BGM to fasting and 2 hours PP. 12/13/16 Symptomatic improvement with diuresis, weight decreased from 204.8 to 197.4 kg. Breathing much easier and lungs are clear today. However, creatinine increased from 1.6 to 2.1 and Bicarb went up from 37 to 39 despite addition of diamox yesterday. Discussed with Dr. Wadsworth - recommends holding Bumex and diamox and rechecking BMP in am. Na still slightly high at 145 - monitor for now. BGM changed to postprandial - elevations noted after breakfast (218) and after lunch (160). Will follow today to determine if increasing morning dose of insulin 70/30 may be helpful. <Luz Glynn - Last Filed: 12/13/16 16:39> Objective Vital signs: Temperature 97.9 F 12/13/16 15:56 Pulse Rate 65 12/13/16 15:56 Respiratory Rate 18 12/13/16 15:56 Blood Pressure 136/66 12/13/16 15:56 Pulse Oximetry 93 12/13/16 15:56 Oxygen Delivery Method Room Air Oxygen Flow Rate 4 Results - Labs CBC & Chem 7: 12/09/16 04:33 12/13/16 04:53 Assessment and Plan (1) Respiratory failure, acute and chronic Current visit: Yes Status: Acute (2) Debility Current visit: Yes Status: Acute Assessment and Plan: I have independently evaluated and examined this patient. I reviewed the chart, the patient's history, and the OIL REFINER/PA's documented findings as above. We discussed and formulated the assessment and plan as above with additions as below: Changes in renal function as noted above. When seen this afternoon Dionicio reports some intermittent double vision when he looks down and primarily to the left. His had no difficulty when he looks to the right or when looking up. Hypoglycemia has not been reported. NAD, respirations nonlabored EOMI, no nystagmus, diplopia reported only on inferior left gaze Decreased breath sounds throughout but no wheezing +2 edema bilateral lower extremities Diuretics on hold as noted. Visual symptoms previously described involving the decreased peripheral right vision. Intermittent diplopia new. Patient is anticoagulated with atrial fibrillation and elevated creatinine precludes imaging with contrast. Reassess all symptoms tomorrow; correlate symptoms with blood sugars-intermittent nature of diplopia suggests metabolic component. Add acute kidney injury and diplopia to diagnosis list. Hospital Course Summary Disclaimer: The visit summary below is not to be considered part of the above Progress Note.
[2016-12-13] MEDS: ALBUTEROL/IPRATROPIUM 2.5mg-0.5mg/3ml NEB AEROSOL SCH ×4 (10:10→19:26)
[2016-12-13] MEDS: RIVAROXABAN 15 MG TABLET PO SCH (17:42)
[2016-12-13] MEDS: DULOXETINE 60 MG CAPSULE PO SCH ×2 (20:39→23:10)
[2016-12-14] MEDS: LEVOTHYROXINE 25 MCG TABLET PO SCH (05:52)
[2016-12-14] MEDS: Oxycodone/Apap 10/325 1 TAB PO SCH ×5 (05:58→21:47)
[2016-12-14] MEDS: SENNA + DOCUSATE TABLET PO SCH ×2 (08:44→21:47)
[2016-12-14] MEDS: ASCORBIC ACID 500 MG TABLET PO SCH (08:44)
[2016-12-14] MEDS: VITAMIN E 400 UNIT CAPSULE PO SCH (08:44)
[2016-12-14] MEDS: GABAPENTIN 600 MG TABLET PO SCH ×2 (08:44→21:47)
[2016-12-14] MEDS: INSULIN NPH/ASPART 70/30 MIX INJECTION SQ SCH ×2 (08:44→17:45)
[2016-12-14] MEDS: POLYETHYL GLYCOL 3350 17gm PACKET PO SCH ×2 (08:45→21:48)
--- NOTE | 2016-12-14 10:51 | IRU Progress Note ---
- Subjective/Serverity of Illness Maxi has developed a couple of medical issues. First he reports an aching or burning sensation primarily in the right shoulder with movement. This does not sound like cardiac. However he was worried about compartment syndrome which she had previously in the right lower extremity. Right hand was somewhat cold. However he could move it well and there was no console operator strength loss. Today his exam is unremarkable. He has good pulses. Extremity does not appear to be cold. He is on metoprolol and states that that may be a new medication for him. I'm wondering if he might have some cold extremity as a side effect of that. Secondly he complains of 3 discrete episodes of vertical diplopia. This occurred in the last 24-36 hours and was always associated with reading or looking down on his iPad. Had no nausea no vomiting. Does have a headache but this is not unusual for him apparently. There was no weakness in either extremity. Had no associated symptoms otherwise. These resolved after just a few minutes. Medically, he is breathing better since the diuresis. Creatinine remains a bit elevated. Hospitalists managing. Physical therapy evaluated him today and felt as though he has oculo-cervical nystagmus. Seems to correlate with his diplopia. Neurologically he is fully intact otherwise. PT: SBA for most activities, with 1 person assist for ambulation 18 ft. He is progressing toward his goals. Some concerns for safety awareness noted. OT: SBA for dressing. CGA for tub transfers. Exam Vital Signs: Temperature 98.3 F 12/14/16 10:21 Pulse Rate 61 12/14/16 07:40 Respiratory Rate 16 12/14/16 07:40 Blood Pressure 135/71 12/14/16 07:40 Pulse Oximetry 91 12/14/16 07:40 Oxygen Delivery Method BiPAP Oxygen Flow Rate 4 Height: 1.75 m Weight: 197.8 kg Body Mass Index: 65.7 - Constitutional Present: no acute distress Comments: The patient is awake, alert and oriented and in no acute distress. States that he is breathing better with the diuresis. Pupils are equal. He has good EOM movement and does have accommodation to confrontation. The neck is supple. Chest: Clear to auscultation bilaterally. Cor: RR with no marianela, click nor murmur Abd: soft with normo-active bowel sounds. There are no masses, no tenderness and no guarding. Extremities: No edema is noted. Right upper extremity examined. No coldness. Pulses are good. Good ROM. Strength is normal bilaterally. Neuro: There is no facial droop. His speech is fluent. He has good strength bilaterally. - Routine HEENT Exam Head: Present: normocephalic Eye: Present: EOMI, PERRL, normal accommodation. Absent: conjunctival icterus, scleral injection ENT: Present: mucous membranes moist - Routine Neck Exam Present: supple - Routine Respiratory Exam Present: CTA bilaterally - Routine Cardiovascular Exam Present: RRR, S1, S2, no murmur - Routine Abdominal Exam Present: soft, normoactive bowel sounds, non distended, non tender - Routine Extremities Exam Present: no edema - Routine Skin Exam Present: intact. Absent: erythema - Routine Neurological Exam Present: alert, oriented X3, CN II-XII intact, normal speech. Absent: sensory deficit, motor deficit, altered mental status, facial asymmetry, tremors - Routine Psychiatric Exam Present: normal affect, normal thought process, cooperative Results IRU - Labs Labs: Reviewed chemistries including creatinine 2.0. Sepsis Assessment - Evaluation Sepsis screening result: No Definite Risk IRU A/P (1) Respiratory failure, acute and chronic Qualifiers: Respiratory failure complication: hypoxia Qualified Code(s): J96.21 - Acute and chronic respiratory failure with hypoxia Current visit: Yes Status: Acute Continues to require oxygen supplementation. (2) Debility Current visit: Yes Status: Acute Continues to require assistance for ambulation etc. He is making progress but will require further therapy. (3) Morbid obesity Current visit: Yes Status: Chronic (4) DM (diabetes mellitus), type 2 with neurological complications Current visit: Yes Status: Chronic Blood sugars are noted. Had one outlying level of 229 otherwise sugars have been good. (5) Acute kidney injury Current visit: Yes Status: Acute (6) Back pain at L4-L5 level Current visit: Yes Status: Chronic DVT Prophylaxis: Xarelto Resuscitation Status: Full Code - Course Hospital Course: Julian Killian MD: 12/09/16 11:17 Therapies are addressing his poor exercise tolerance, endurance, and myopathy. He is able to walk 12 feet today with standby assist. Stairs require contact- guard assist. Dietitian is involved with regard to meal planning and recommendations. Appreciate hospitalists involvement. 12/13/16 09:53 Creatinine is acutely increased related to diuresis most likely. Bumex has been decreased in this regard. Continues to complain of pain in the ankle and back at a 5-6 level. Decided to keep fentanyl patch were we are. Please see above discussion. He is progressing with therapy and is ambulatory distance is improved. Barriers to discharge included his dyspnea, poor conditioning and his pain. 12/14/16 10:56 Has developed 3 episodes of diplopia (vertically). Therapy has evaluated him and feels as though he has ocular cervical nystagmus. This could be a fracture. No other evidence of underlying neurologic changes noted. Continues to improve with therapy and is walking 18 feet with assistance of 1. Complains of right arm burning aching and coldness. Exam is negative. Question cold extremity side effect of beta florencio. - Interventions to Obtain Goals PT Treatment Plan: Balance/Proprioception, Functional Activities, Gait Training , Patient/Family Education, Therapeutic Exercise OT Treatment Plan: ADL (Basic Care), Balance Training, IADL, Pt./Family Education, Ther. Exercise for ADL
[2016-12-14] MEDS: ALBUTEROL/IPRATROPIUM 2.5mg-0.5mg/3ml NEB AEROSOL SCH ×3 (11:25→18:54)
--- NOTE | 2016-12-14 12:06 | IRU Team Meeting ---
IRU Team Meeting - Nursing Vital Signs: Vital Signs - 24 hr 12/13/16 14:52 12/13/16 15:56 12/13/16 19:20 Temperature 97.9 F Pulse Rate 65 Respiratory Rate 16 18 16 Blood Pressure 136/66 Pulse Oximetry 93 96 12/13/16 19:49 12/14/16 07:40 12/14/16 10:21 Temperature 98.3 F 97.9 F 98.3 F Pulse Rate 61 61 Respiratory Rate 18 16 Blood Pressure 134/69 135/71 Pulse Oximetry 95 91 12/14/16 11:25 Temperature Pulse Rate Respiratory Rate 24 Blood Pressure Pulse Oximetry 95 Current Medications: Acetazolamide (Diamox) 250 mg PO [id number] [facility] Last Admin: 12/13/16 08:29 Dose: 250 mg Albuterol/Ipratropium (Duoneb) 3 ml AEROSOL Q2H PRN PRN Reason: Shortness of air Albuterol/Ipratropium (Duoneb) 3 ml AEROSOL RTQID [facility] Last Admin: 12/14/16 11:25 Dose: 3 ml Artificial Tears (Refresh Classic) 1 drop EACH EYE TID PRN PRN Reason: dry eye Ascorbic Acid (Vitamin C) 500 mg PO DAILY [facility] Last Admin: 12/14/16 08:44 Dose: 500 mg Bumetanide (Bumex) 1 mg PO [facility] Last Admin: 12/13/16 06:22 Dose: 1 mg Duloxetine HCl (Cymbalta) 120 mg PO HS [facility] Last Admin: 12/13/16 23:10 Dose: Not Given Fentanyl (Duragesic Patch) 25 mcg TD Q72H [facility] Last Admin: 12/12/16 09:21 Dose: 25 mcg Fentanyl Citrate (Duragesic Patch Removal) 1 removal TD Q3D [facility] Last Admin: 12/12/16 09:21 Dose: 1 removal Gabapentin (Neurontin) 600 mg PO BID [facility] Last Admin: 12/14/16 08:44 Dose: 600 mg Glucagon (Glucagen) 1 mg IM PRN PRN PRN Reason: Hypoglycemia Glucose (Glutose 15) 15 gm PO PRN PRN PRN Reason: Hypoglycemia Insulin Aspart (Novolog Mix 70-30) 85 unit SQ BIDWM [facility] Last Admin: 12/14/16 08:44 Dose: 85 unit Levothyroxine Sodium (Synthroid) 25 mcg PO ACB [facility] Last Admin: 12/14/16 05:52 Dose: 25 mcg Metoprolol Tartrate (Lopressor) 50 mg PO BIDWM [facility] Last Admin: 12/14/16 08:45 Dose: 50 mg Multi-Ingredient Lotion (Lacrilube) 1 applic EACH EYE PRN PRN PRN Reason: dry eye Nitroglycerin (Nitrostat) 0.4 mg SL Q5M PRN PRN Reason: Chest pain Oxycodone/Acetaminophen (Percocet 10/325) 1 tab PO 0700,1200,1700,2200 [facility] Polyethylene Glycol (Miralax) 17 gm PO BID [facility] Last Admin: 12/14/16 08:45 Dose: 17 gm Rivaroxaban (Xarelto) 15 mg PO WS [facility] Last Admin: 12/13/16 17:42 Dose: 15 mg Senna/Docusate Sodium (Senna Plus Tablet) 1 tab PO BID [facility] Last Admin: 12/14/16 08:44 Dose: 1 tab Tizanidine HCl (Zanaflex) 4 mg PO Q8H [facility] Last Admin: 12/14/16 08:44 Dose: 4 mg Vitamin E (Vitamin E) 400 unit PO DAILY [facility] Last Admin: 12/14/16 08:44 Dose: 400 unit Comments: Patient has undergone diuresis, although Bumex now held. He is breathing better but still requires supplemental O2. Right arm and shoulder burning. Has had three spells of diplopia. Dietitian: 3000 marissa per day. That should promote one lb of weight loss weekly. Reviewed need to reduce total caloric intake. Sugars are doing well. It is recommended that he not drink whole milk, but he prefers whole milk. - Physical Therapy Comments: Walking 40 ft. SBA with walking. Pain is a barrier. He is functional for home. - Occupational Therapy Eating Ability: Independent Grooming Ability: Stand By Assist/Supervision Bathing Ability: Stand By Assist/Supervision Upper Body Dressing Ability: Stand By Assist/Supervision Lower Body Dressing Comment: Improving. will assist with lower extremity dressing. Needs to cont to work on standing and walking to return home. - Care Plan Anticipated Length of Stay: 3 Anticipated DC Destination: Home, Self Care Interventions/Goals: He is approaching functionality for home. Barriers: pain, endurance. Goals: Progress to 50 ft with ambulation.
--- NOTE | 2016-12-14 13:13 | Progress Note ---
Subjective: Dionicio was seen while working with physical therapy. He states he slept much better last night. He has not had any double vision yet today. He states he had it about 3 times yesterday, all of which occurred while he was reading. It tends to be most pronounced when he is looking down and to the right or left. He had right shoulder pain earlier this morning, but that has improved. He also notes a stiff and painful right neck, which has likely contributed to a right- sided headache. He states his breathing is doing well. He has not gained any weight since holding his diuretics. Objective Vital signs: Temperature 98.3 F 12/14/16 10:21 Pulse Rate 61 12/14/16 07:40 Respiratory Rate 24 12/14/16 11:25 Blood Pressure 135/71 12/14/16 07:40 Pulse Oximetry 95 12/14/16 11:25 Oxygen Delivery Method BiPAP Oxygen Flow Rate 4 Body Mass Index: 65.7 - Constitutional Present: no acute distress, well nourished, well developed, morbidly obese - Routine HEENT Exam Head: Present: normocephalic ENT: Present: mucous membranes moist, oropharynx clear - Routine Respiratory Exam Present: rales (faint and scattered bibasilar crackles) - Routine Cardiovascular Exam Present: RRR, S1, S2 - Routine Abdominal Exam Present: normoactive bowel sounds, non tender - Routine Extremities Exam Present: edema (bilateral lower extremities, right greater than left, chronic) - Routine Back/Spine/Pelvis Exam Back/Spine: Absent: vertebral tenderness - Routine Musculoskeletal Exam Musculoskeletal: Present: moving extremities well (no range of motion deficits to Right shoulder), other (right neck/trapezius is tender on palpation) - Routine Skin Exam Present: intact, dry, warm - Routine Neurological Exam Present: alert, oriented X3. Absent: CN II-XII intact (he has nystagmus with lateral eye movement to both the right and left. 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 Treatable with therapy via accommodation. -If symptoms do not improve, could consider imaging. Acute kidney injury -Creatinine decreased slightly to 2.0. -Bicarbonate has also decreased from 39-37 -Continue to hold Bumex and Diamox. -Recheck BMP tomorrow morning. -monitor daily weights, ins/outs Type 2 Diabetes, on NovoLog 70/30 -Blood sugars over the last 48 hours tend to remain below 180. -Continue to monitor HTN -stable Sepsis Assessment - Evaluation Sepsis screening result: No Definite Risk Hospital Course Summary Disclaimer: The visit summary below is not to be considered part of the above Progress Note. 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 Suspect he will need diuresis. Continue daily weights. Reassess BMP because of recent acute kidney injury. Blood sugars have been under fairly good control on NovoLog 70/30 twice a day. He had a couple hypoglycemic readings earlier in his rehabilitation course, but this has improved. CXR reviewed - pulmonary congestion. Layering of over right hemidiaphragm - Dr. Wadsworth reviewed CXR from [facility], which showed elevation of right hemidiaphragm but we were unable to appreciate the layering appearance seen on today's 2-view film. BMP - renal function fairly intact but K is 5.5. Dr. Wadsworth suspects proximal ATN (frequently seen in diabetics who are taken off diuretics). If no improvement by tomorrow and bicarb is abnormal, we could start Bumex + bicarb gtt. Plan - give Bumex 2 mg PO now and start 1 mg BID tomorrow. Recheck BMP in am. Discussed with Chiara; agree with diuresis, will monitor outputs after 2 mg dose today (po; he does not have IV access currently). Will order 1 mg BID bumex for tomorrow and can increase to 2 mg if needed. 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 Will monitor and adjust tomorrow, recheck labs in AM and follow weights and outputs. 12/12/16 Symptomatic and clinical improvement post oral diuresis with Bumex. Today we'll start 1 mg and mg at 1400. He reports his take Bumex 2 mg at home on a when necessary basis, which actually equated to about every other day. Potassium has returned to normal value. Post Bumex dosing. It is 4.8. Creatinine bumped slightly to 1.6. Bicarbonate also increased. Dr. Wadsworth has already ordered Diamox BID. Sodium has increased to 145. Will repeat BMP in am to monitor renal function, bicarb, and sodium level. May need to adjust diuretic dosing. Overall, BGM under fairly good control (one erroneous reading >200 yesterday before lunch). Change frequency of BGM to fasting and 2 hours PP. 12/13/16 Symptomatic improvement with diuresis, weight decreased from 204.8 to 197.4 kg. Breathing much easier and lungs are clear today. However, creatinine increased from 1.6 to 2.1 and Bicarb went up from 37 to 39 despite addition of diamox yesterday. Discussed with Dr. Wadsworth - recommends holding Bumex and diamox and rechecking BMP in am. Na still slightly high at 145 - monitor for now. BGM changed to postprandial - elevations noted after breakfast (218) and after lunch (160). Will follow today to determine if increasing morning dose of insulin 70/30 may be helpful. 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 Treatable with therapy via accommodation. -If symptoms do not improve, could consider imaging. Acute kidney injury -Creatinine decreased slightly to 2.0. -Bicarbonate has also decreased from 39-37 -Continue to hold Bumex and Diamox. -Recheck BMP tomorrow morning. -monitor daily weights, ins/outs Type 2 Diabetes, on NovoLog 70/30 -Blood sugars over the last 48 hours tend to remain below 180. -Continue to monitor
[2016-12-14] MEDS: RIVAROXABAN 15 MG TABLET PO SCH (17:44)
[2016-12-14] MEDS: DULOXETINE 60 MG CAPSULE PO SCH (21:47)
[2016-12-15] MEDS: LEVOTHYROXINE 25 MCG TABLET PO SCH (06:37)
[2016-12-15] MEDS: Oxycodone/Apap 10/325 1 TAB PO SCH ×4 (06:37→23:40)
[2016-12-15] MEDS: ALBUTEROL/IPRATROPIUM 2.5mg-0.5mg/3ml NEB AEROSOL SCH ×4 (07:11→19:30)
[2016-12-15] MEDS: SENNA + DOCUSATE TABLET PO SCH ×2 (08:39→21:19)
[2016-12-15] MEDS: INSULIN NPH/ASPART 70/30 MIX INJECTION SQ SCH ×2 (08:39→17:38)
[2016-12-15] MEDS: ASCORBIC ACID 500 MG TABLET PO SCH (08:39)
[2016-12-15] MEDS: VITAMIN E 400 UNIT CAPSULE PO SCH (08:39)
[2016-12-15] MEDS: GABAPENTIN 600 MG TABLET PO SCH ×2 (08:39→21:19)
--- NOTE | 2016-12-15 09:11 | Progress Note ---
Subjective: Patient seen in the dining room this morning. Overall, he feels he is doing well. He states he still feels like he cannot completely fill his lungs when he takes a deep breath. Continues to have productive cough. He continues to have some double vision when he is reading or looking to the right or left. PT has him doing accommodation exercises. Doesn't feel this is worsening. Has no associated symptoms. Objective Vital signs: Temperature 97.6 F 12/15/16 08:00 Pulse Rate 61 12/15/16 08:00 Respiratory Rate 12 12/15/16 08:00 Blood Pressure 144/67 H 12/15/16 08:00 Pulse Oximetry 98 12/15/16 08:00 Oxygen Delivery Method Room Air,Nasal Cannula Oxygen Flow Rate 4 Weight: 197.5 kg - Constitutional Present: no acute distress, well nourished, well developed, obese - Routine HEENT Exam Head: Present: normocephalic, atraumatic Eye: Present: EOMI ENT: Present: mucous membranes moist, dentition normal - Routine Respiratory Exam Present: decreased breath sounds, CTA bilaterally, distant breath sounds. Absent: wheezes - Routine Cardiovascular Exam Present: RRR. Absent: murmur - Routine Abdominal Exam Present: soft, normoactive bowel sounds, non distended. Absent: tenderness - Routine Extremities Exam Present: edema (bilateral lower extremeties. R>L - chronic), normal capillary refill - Routine Back/Spine/Pelvis Exam Back/Spine: Absent: vertebral tenderness - Routine Skin Exam Present: dry, warm - Routine Neurological Exam Present: alert, oriented X3, CN II-XII intact - Routine Lymphatic Exam Lymphatic: Absent: adenopathy - Routine Psychiatric Exam Present: normal affect, normal thought process Results - Labs CBC & Chem 7: 12/09/16 04:33 12/15/16 07:35 Assessment and Plan (1) Respiratory failure, acute and chronic Current visit: Yes Status: Acute (2) Debility Current visit: Yes Status: Acute Assessment and Plan: ASSESSMENT LAVERNE-improving Diplopia and nystagmus 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 Continue treatment with therapy via accommodation. -If symptoms do not improve, could consider imaging. Acute kidney injury -Creatinine continues to improve to 1.8. -Bicarbonate continues to improve. -Continue to hold Bumex and Diamox. -Recheck BMP tomorrow morning. -monitor daily weights, ins/outs Type 2 Diabetes, on NovoLog 70/30 -Blood sugars over the last 48 hours tend to remain below 180 with the exception of one reading of 204 after dinner last night. -Continue to monitor HTN -stable Sepsis Assessment - Evaluation Sepsis screening result: No Definite Risk Hospital Course Summary Disclaimer: The visit summary below is not to be considered part of the above Progress Note. Hospital Course: 12/11/16 Chest x-ray and labs ordered because of conversational dyspnea and degree of edema. Suspect he will need diuresis. Continue daily weights. Reassess BMP because of recent acute kidney injury. Blood sugars have been under fairly good control on NovoLog 70/30 twice a day. He had a couple hypoglycemic readings earlier in his rehabilitation course, but this has improved. CXR reviewed - pulmonary congestion. Layering of over right hemidiaphragm - Dr. Wadsworth reviewed CXR from [facility], which showed elevation of right hemidiaphragm but we were unable to appreciate the layering appearance seen on today's 2-view film. BMP - renal function fairly intact but K is 5.5. Dr. Wadsworth suspects proximal ATN (frequently seen in diabetics who are taken off diuretics). If no improvement by tomorrow and bicarb is abnormal, we could start Bumex + bicarb gtt. Give Bumex 2 mg PO now and start 1 mg BID tomorrow. Recheck BMP in am. Discussed with Chiara; agree with diuresis, will monitor outputs after 2 mg dose today (po; he does not have IV access currently). Will order 1 mg BID bumex for tomorrow and can increase to 2 mg if needed. 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 Will monitor and adjust tomorrow, recheck labs in AM and follow weights and outputs. 12/12/16 Symptomatic and clinical improvement post oral diuresis with Bumex. Today we'll start 1 mg and mg at 1400. He reports his take Bumex 2 mg at home on a when necessary basis, which actually equated to about every other day. Potassium has returned to normal value. Post Bumex dosing. It is 4.8. Creatinine bumped slightly to 1.6. Bicarbonate also increased. Dr. Wadsworth has already ordered Diamox BID. Sodium has increased to 145. Will repeat BMP in am to monitor renal function, bicarb, and sodium level. May need to adjust diuretic dosing. Overall, BGM under fairly good control (one erroneous reading >200 yesterday before lunch). Change frequency of BGM to fasting and 2 hours PP. 12/13/16 Symptomatic improvement with diuresis, weight decreased from 204.8 to 197.4 kg. Breathing much easier and lungs are clear today. However, creatinine increased from 1.6 to 2.1 and Bicarb went up from 37 to 39 despite addition of diamox yesterday. Discussed with Dr. Wadsworth - recommends holding Bumex and diamox and rechecking BMP in am. Na still slightly high at 145 - monitor for now. BGM changed to postprandial - elevations noted after breakfast (218) and after lunch (160). Will follow today to determine if increasing morning dose of insulin 70/30 may be helpful. 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 Treatable with therapy via accommodation. Creatinine and bicarb are improving. Continue to hold Bumex and Diamox. Monitor wts and follow BMP. Blood sugars and blood pressures stable. 12/15/16 Continue with accommodation therapy for cervical ocular dizziness Continue to hold Bumex and Diamox. Creatinine is improving, potassium and sodium are stable. Weights are stable. Blood sugars and blood pressures stable.
[2016-12-15] MEDS: POLYETHYL GLYCOL 3350 17gm PACKET PO SCH ×2 (09:54→23:40)
--- NOTE | 2016-12-15 10:58 | IRU Progress Note ---
- Subjective/Serverity of Illness Maxi was interviewed and examined in his room this morning. He states that he continues to have some sensation of not being able to take a full, deep, satisfying breath. Does not really have much in the way of a cough. Still has dyspnea with activity. No chest pain is reported. His right shoulder and right arm discomfort have not recurred. Continues to have a bit of diplopia when he looks down. Physical therapy is working with him on some accommodation in this regard. Toilet transfers are improving. He is ambulating some 40 feet. Overall he is improving with therapy but does express some lack of motivation when he goes home. I discussed this with him at length this morning and encourage him to continue working hard even at home. He feels as though home health physical therapy would not be of great benefit for him. I reviewed his creatinine which is improved. Exam Vital Signs: Temperature 97.6 F 12/15/16 08:00 Pulse Rate 61 12/15/16 08:00 Respiratory Rate 12 12/15/16 08:00 Blood Pressure 144/67 H 12/15/16 08:00 Pulse Oximetry 98 12/15/16 08:00 Oxygen Delivery Method Room Air,Nasal Cannula Oxygen Flow Rate 4 Height: 1.75 m Weight: 197.5 kg Body Mass Index: 65.7 - Constitutional Present: no acute distress, morbidly obese, cooperative Comments: The patient is awake, alert and oriented and in no acute distress, although does get short of breath with activity. Pupils are equal. The neck is supple. Chest: Clear to auscultation bilaterally. Cor: RR with no marianela, click nor murmur Abd: soft with normo-active bowel sounds. There are no masses, no tenderness and no guarding. Extremities: No edema is noted. There are good pulses in both ankles. No cyanosis is present. . - Routine HEENT Exam Head: Present: normocephalic Eye: Present: EOMI ENT: Present: mucous membranes moist - Routine Neck Exam Present: supple, full ROM - Routine Respiratory Exam Present: CTA bilaterally - Routine Cardiovascular Exam Present: RRR, S1, S2, no murmur - Routine Abdominal Exam Present: soft, normoactive bowel sounds, non distended, non tender - Routine Extremities Exam Present: no edema - Routine Skin Exam Absent: erythema - Routine Neurological Exam Present: alert, oriented X3, CN II-XII intact - Routine Psychiatric Exam Present: normal affect, normal thought process, cooperative Results IRU - Labs Labs: Creatinine improved down to 1.8 from 2.0. BUN remains elevated at 51. Sepsis Assessment - Evaluation Sepsis screening result: No Definite Risk IRU A/P (1) Respiratory failure, acute and chronic Qualifiers: Respiratory failure complication: hypoxia Qualified Code(s): J96.21 - Acute and chronic respiratory failure with hypoxia Current visit: Yes Status: Acute Continues to demonstrate acute on chronic respiratory failure. He requires oxygen therapy at the rate of 4 L/m. In addition, the patient is deconditioned and gets short of breath with activity. (2) Debility Current visit: Yes Status: Acute He is improving regarding physical therapy and occupational therapy. His ambulatory distance is improved. Toilet transfers are improved. We talked about his dismissal in a couple of days. Talked about motivation and importance of continuing to try hard. He declines home health at this time. (3) Morbid obesity Current visit: Yes Status: Chronic Dietitian has worked with him with regard to appropriate caloric intake. Currently on around 3000 marissa daily which would encourage a 1 pound weekly weight loss. (4) DM (diabetes mellitus), type 2 with neurological complications Current visit: Yes Status: Chronic (5) Acute kidney injury Current visit: Yes Status: Acute Acute kidney injury noted but creatinine is improving. Baseline creatinine upon admission here was 1.4. (6) Back pain at L4-L5 level Current visit: Yes Status: Chronic DVT Prophylaxis: Xarelto Resuscitation Status: Full Code - Course Hospital Course: Julian Killian MD: 12/09/16 11:17 Therapies are addressing his poor exercise tolerance, endurance, and myopathy. He is able to walk 12 feet today with standby assist. Stairs require contact- guard assist. Dietitian is involved with regard to meal planning and recommendations. Appreciate hospitalists involvement. 12/13/16 09:53 Creatinine is acutely increased related to diuresis most likely. Bumex has been decreased in this regard. Continues to complain of pain in the ankle and back at a 5-6 level. Decided to keep fentanyl patch were we are. Please see above discussion. He is progressing with therapy and is ambulatory distance is improved. Barriers to discharge included his dyspnea, poor conditioning and his pain. 12/14/16 10:56 Has developed 3 episodes of diplopia (vertically). Therapy has evaluated him and feels as though he has ocular cervical nystagmus. This could be a fracture. No other evidence of underlying neurologic changes noted. Continues to improve with therapy and is walking 18 feet with assistance of 1. Complains of right arm burning aching and coldness. Exam is negative. Question cold extremity side effect of beta florencio. 12/15/16 11:00 Patient continues to improve with toilet transfers and ambulatory distance of 40 feet. Continues to have acute on chronic respiratory failure and chronic dyspnea with deconditioning. Continue working with patient for another 2-3 days. Right arm burning discomfort resolved. - Interventions to Obtain Goals PT Treatment Plan: Balance/Proprioception, Functional Activities, Gait Training , Patient/Family Education, Therapeutic Exercise OT Treatment Plan: ADL (Basic Care), Balance Training, IADL, Pt./Family Education, Ther. Exercise for ADL
[2016-12-15] MEDS: RIVAROXABAN 15 MG TABLET PO SCH (17:37)
[2016-12-15] MEDS: DULOXETINE 60 MG CAPSULE PO SCH (21:19)
[2016-12-16] MEDS: LEVOTHYROXINE 25 MCG TABLET PO SCH (05:36)
[2016-12-16] MEDS: SENNA + DOCUSATE TABLET PO SCH ×2 (08:38→20:48)
[2016-12-16] MEDS: GABAPENTIN 600 MG TABLET PO SCH ×2 (08:38→20:48)
[2016-12-16] MEDS: ASCORBIC ACID 500 MG TABLET PO SCH (08:38)
[2016-12-16] MEDS: VITAMIN E 400 UNIT CAPSULE PO SCH (08:38)
[2016-12-16] MEDS: POLYETHYL GLYCOL 3350 17gm PACKET PO SCH ×2 (08:38→20:47)
[2016-12-16] MEDS: INSULIN NPH/ASPART 70/30 MIX INJECTION SQ SCH ×2 (08:38→17:47)
[2016-12-16] MEDS: Oxycodone/Apap 10/325 1 TAB PO SCH ×4 (08:39→20:48)
[2016-12-16] MEDS: ALBUTEROL/IPRATROPIUM 2.5mg-0.5mg/3ml NEB AEROSOL SCH ×4 (09:11→20:08)
--- NOTE | 2016-12-16 11:13 | Progress Note ---
<Alyx Blanco - Last Filed: 12/16/16 11:28> Subjective: Patient evaluated in his room in follow-up. He has no complaints. He states he does continue to feel like he can't take a full/deep breath. He states he has been ambulating in the halls and has minimal dyspnea on exertion. He makes no mention of the diplopia he had experienced the past few days. Objective Vital signs: Temperature 98.0 F 12/15/16 22:47 Pulse Rate 62 12/16/16 08:00 Respiratory Rate 12 12/16/16 08:55 Blood Pressure 150/71 H 12/16/16 08:00 Pulse Oximetry 96 12/16/16 08:00 Oxygen Delivery Method Nasal Cannula Oxygen Flow Rate 4 Weight: 201 kg - Constitutional Present: well nourished, well developed - Routine HEENT Exam Head: Present: normocephalic, atraumatic Eye: Present: EOMI ENT: Present: mucous membranes moist, dentition normal - Routine Respiratory Exam Present: CTA bilaterally (sounds are less distant today.). Absent: wheezes - Routine Cardiovascular Exam Present: RRR, S1, S2. Absent: murmur - Routine Abdominal Exam Present: soft, normoactive bowel sounds, non distended. Absent: tenderness - Routine Extremities Exam Present: edema (1+ bilateral), normal capillary refill - Routine Skin Exam Present: dry, warm, scars (right lower leg) - Routine Neurological Exam Present: alert, oriented X3 - Routine Lymphatic Exam Lymphatic: Absent: adenopathy - Routine Psychiatric Exam Present: normal affect, normal thought process Results - Labs CBC & Chem 7: 12/09/16 04:33 12/16/16 06:45 Labs: Laboratory Tests 12/15/16 12/15/16 12/15/16 10:13 14:18 19:57 Glucometer 259 206 199 12/16/16 12/16/16 05:45 10:58 Glucometer 209 191 Laboratory Tests 12/13/16 12/14/16 12/15/16 04:53 06:58 07:35 Creatinine 2.1 H D 2.0 H 1.8 H D 12/16/16 06:45 Creatinine 1.6 H D Assessment and Plan (1) Respiratory failure, acute and chronic Current visit: Yes Status: Acute (2) Debility Current visit: Yes Status: Acute Assessment and Plan: ASSESSMENT LAVERNE-improving Diplopia and nystagmus - resolved 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 Weight is going up from 197.5 kg yesterday to 201 kg today. Start Bumex 0.5 milligram daily. He states at home he usually takes 2 mg every 3 days -Recheck BMP tomorrow morning. -Continue to monitor daily weights, ins/outs Type 2 Diabetes, on NovoLog 70/30 -Blood sugars have averaged upper 100s to low 200s. Will increase his NovoLog 70 /30 from 85U to 87 units twice a day. -Continue to monitor sugars. HTN -Pressures reviewed. Stable. Sepsis Assessment - Evaluation Sepsis screening result: No Definite Risk Hospital Course Summary Disclaimer: The visit summary below is not to be considered part of the above Progress Note. Hospital Course: 12/11/16 Chest x-ray and labs ordered because of conversational dyspnea and degree of edema. Suspect he will need diuresis. Continue daily weights. Reassess BMP because of recent acute kidney injury. Blood sugars have been under fairly good control on NovoLog 70/30 twice a day. He had a couple hypoglycemic readings earlier in his rehabilitation course, but this has improved. CXR reviewed - pulmonary congestion. Layering of over right hemidiaphragm - Dr. Wadsworth reviewed CXR from [facility], which showed elevation of right hemidiaphragm but we were unable to appreciate the layering appearance seen on today's 2-view film. BMP - renal function fairly intact but K is 5.5. Dr. Wadsworth suspects proximal ATN (frequently seen in diabetics who are taken off diuretics). If no improvement by tomorrow and bicarb is abnormal, we could start Bumex + bicarb gtt. Give Bumex 2 mg PO now and start 1 mg BID tomorrow. Recheck BMP in am. Discussed with Chiara; agree with diuresis, will monitor outputs after 2 mg dose today (po; he does not have IV access currently). Will order 1 mg BID bumex for tomorrow and can increase to 2 mg if needed. 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 Will monitor and adjust tomorrow, recheck labs in AM and follow weights and outputs. 12/12/16 Symptomatic and clinical improvement post oral diuresis with Bumex. Today we'll start 1 mg and mg at 1400. He reports his take Bumex 2 mg at home on a when necessary basis, which actually equated to about every other day. Potassium has returned to normal value. Post Bumex dosing. It is 4.8. Creatinine bumped slightly to 1.6. Bicarbonate also increased. Dr. Wadsworth has already ordered Diamox BID. Sodium has increased to 145. Will repeat BMP in am to monitor renal function, bicarb, and sodium level. May need to adjust diuretic dosing. Overall, BGM under fairly good control (one erroneous reading >200 yesterday before lunch). Change frequency of BGM to fasting and 2 hours PP. 12/13/16 Symptomatic improvement with diuresis, weight decreased from 204.8 to 197.4 kg. Breathing much easier and lungs are clear today. However, creatinine increased from 1.6 to 2.1 and Bicarb went up from 37 to 39 despite addition of diamox yesterday. Discussed with Dr. Wadsworth - recommends holding Bumex and diamox and rechecking BMP in am. Na still slightly high at 145 - monitor for now. BGM changed to postprandial - elevations noted after breakfast (218) and after lunch (160). Will follow today to determine if increasing morning dose of insulin 70/30 may be helpful. 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 Treatable with therapy via accommodation. Creatinine and bicarb are improving. Continue to hold Bumex and Diamox. Monitor wts and follow BMP. Blood sugars and blood pressures stable. 12/15/16 Continue with accommodation therapy for cervical ocular dizziness Continue to hold Bumex and Diamox. Creatinine is improving, potassium and sodium are stable. Weights are stable. Blood sugars and blood pressures stable. 12/16/16 -Weight is increasing. (197.5 yesterday to 201 kg today.) Will add back in low dose Bumex. Start Bumex 0.5 milligram daily. He states at home he usually takes 2 mg every 3 days -Recheck BMP tomorrow morning. -Blood sugars have averaged upper 100s to low 200s. Increase his NovoLog 70/30 from 85U to 87 units twice a day. <Luz Glynn - Last Filed: 12/16/16 18:47> Objective Vital signs: Temperature 98.2 F 12/16/16 16:00 Pulse Rate 72 12/16/16 16:00 Respiratory Rate 16 12/16/16 16:08 Blood Pressure 138/67 12/16/16 16:00 Pulse Oximetry 95 12/16/16 16:08 Oxygen Delivery Method Nasal Cannula Oxygen Flow Rate 4 Results - Labs CBC & Chem 7: 12/09/16 04:33 12/16/16 06:45 Assessment and Plan (1) Respiratory failure, acute and chronic Current visit: Yes Status: Acute (2) Debility Current visit: Yes Status: Acute Assessment and Plan: I have independently evaluated and examined this patient. I reviewed the chart, the patient's history, and the K 12 PRINCIPAL/PA's documented findings as above. We discussed and formulated the assessment and plan as above with additions as below: Patient reports doing well and that his exercise tolerance has improved because he is not as short of breath as he was earlier in the week. Typically he takes 1 mg of Bumex about every 3 days to control edema and he thinks his weight and lower extremity edema are about at baseline currently. NAD, morbidly obese, resting comfortably with head of bed elevated 30 Respirations nonlabored, decreased airflow throughout, breath sounds clear Regular rhythm 3+ pitting edema bilateral lower extremities Given progressive improvement in renal function over the past 3 days will resume lower dose Bumex as above. Continue BiPAP/CPAP with sleep/naps. Hospital Course Summary Disclaimer: The visit summary below is not to be considered part of the above Progress Note.
[2016-12-16] MEDS: BUMETANIDE 0.5 MG TABLET PO SCH (12:15)
[2016-12-16] MEDS: RIVAROXABAN 15 MG TABLET PO SCH (17:47)
[2016-12-16] MEDS: DULOXETINE 60 MG CAPSULE PO SCH (20:48)
[2016-12-17] MEDS: Oxycodone/Apap 10/325 1 TAB PO SCH ×4 (01:00→16:39)
[2016-12-17] MEDS: DULOXETINE 60 MG CAPSULE PO SCH (01:01)
[2016-12-17] MEDS: LEVOTHYROXINE 25 MCG TABLET PO SCH (06:10)
[2016-12-17] MEDS: ALBUTEROL/IPRATROPIUM 2.5mg-0.5mg/3ml NEB AEROSOL SCH ×3 (06:58→17:12)
[2016-12-17] MEDS: INSULIN NPH/ASPART 70/30 MIX INJECTION SQ SCH ×2 (08:46→16:39)
[2016-12-17] MEDS: SENNA + DOCUSATE TABLET PO SCH (08:47)
[2016-12-17] MEDS: GABAPENTIN 600 MG TABLET PO SCH (08:47)
[2016-12-17] MEDS: VITAMIN E 400 UNIT CAPSULE PO SCH (08:47)
[2016-12-17] MEDS: BUMETANIDE 0.5 MG TABLET PO SCH (08:47)
[2016-12-17] MEDS: ASCORBIC ACID 500 MG TABLET PO SCH (08:47)
[2016-12-17] MEDS: POLYETHYL GLYCOL 3350 17gm PACKET PO SCH (08:50)
--- NOTE | 2016-12-17 09:09 | Discharge Instructions ---
Discharge Plan - Med Rec/Dispo Referrals/Follow Up: Terrie Mtz Dr [Other] (Dr. Lillie Mtz on 01/07/17 at 9:15-Check-in. 2 hr appt. . [facility] [address] [place] [address] This appt. was made for patient, prior to transferring to IRU.) Eduardo Payton DO [Family Provider] - (Sanju Oliva, HARD C[employer] BATCH MIXER on 12/23/16 at 1:45 pm for Hosp. follow-up. . [facility]. Will need BMP lab at that time. [address] [place] [id number] ) Additional Instructions: Will need a BMP at follow up apt on 12/23. Prescriptions: New Senna + Docusate [Senna Plus Tablet] 1 tab PO BID tablet Bumetanide Tab [Bumex] 0.5 mg PO DAILY #30 tablet Continue Duloxetine HCl [Cymbalta] 120 mg PO HS #0 Nitroglycerin [Nitrostat] 0.4 mg SL Q5M PRN PRN Reason: Chest Pain Artificial Tears [Tears Naturale] 2 drop OP TID PRN PRN Reason: dry eye Mineral Oil/Petrolatum,White [Refresh P.m. Ointment] 3.5 gm OP PRN PRN PRN Reason: dry eye Tizanidine [Zanaflex] 4 mg PO Q8H Rivaroxaban [Xarelto] 15 mg PO DAILY Calcium 500 + D [Os Orion-D 500] 1 tab PO TID Levothyroxine Tab [Synthroid] 25 mcg PO ACB Albuterol/Ipratropium [Duoneb] 3 ml AEROSOL Q2HPRN PRN PRN Reason: Shortness Of Air Ascorbate Calcium [Vitamin C] 500 mg PO DAILY Ipratropium/Albuterol [Combivent Respimat Inhaler] 1 puff INH Q4H PEG 3350 17gm PACKET [Miralax] 17 gm PO BID Metoprolol Tartrate [Lopressor] 50 mg PO BID Gabapentin [Neurontin] 600 mg PO BID Vitamin E 400 unit PO DAILY Discontinued Glucagon [Glucagen] 1 mg IM PRN PRN PRN Reason: Hypoglycemia Insulin Lispro [Humalog] 0 unit SQ ACHS Dextrose [Glutose 15] 15 gm PO PRN PRN PRN Reason: Hypoglycemia No Action Albuterol/Ipratropium [Duoneb] 3 ml AEROSOL TID Oxycodone/APAP 10/325 [Percocet 10/325] 1 tab PO QID Novolog Mix 70/30 Sq [Novolog Mix 70-30] 85 unit SQ BID FentaNYL PATCH [Duragesic Patch] 25 mcg TD Q72H Albuterol Inhaler [Ventolin Hfa 90 mcg/actuation] 2 puff INH PRN PRN PRN Reason: Shortness Of Air
--- NOTE | 2016-12-17 11:03 | IRU Progress Note ---
- Subjective/Serverity of Illness Maxi was evaluated on he was in his room. He is doing much better. His ability to care for himself has improved. Continues to be short of breath with activity. Coughing up a bit of yellow sputum as he has been. It is not worsened was in the past. States that he can take a more full, deep and satisfying breath at the present time. Continues to demonstrate respiratory failure and requires oxygen 24 hours daily which she has at home. He is improved with therapy. He declines home health at this time. Exam Vital Signs: Temperature 97.9 F 12/17/16 08:00 Pulse Rate 60 12/17/16 08:00 Respiratory Rate 18 12/17/16 08:00 Blood Pressure 142/67 H 12/17/16 08:00 Pulse Oximetry 98 12/17/16 08:00 Oxygen Delivery Method BiPAP Oxygen Flow Rate 4 Height: 1.75 m Weight: 201 kg Body Mass Index: 65.7 - Constitutional Present: no acute distress Comments: The patient is awake, alert and oriented and in no acute distress. Pupils are equal. The neck is supple. Chest: Clear to auscultation bilaterally. Cor: RR with no marianela, click nor murmur Abd: soft, obese, with normo-active bowel sounds. There are no masses, no tenderness and no guarding. Extremities: No edema is noted. - Routine Respiratory Exam Present: dyspnea, CTA bilaterally - Routine Cardiovascular Exam Present: RRR, S1, S2, no murmur Results IRU - Labs Labs: Reviewed recent labs including chemistries. Sepsis Assessment - Evaluation Sepsis screening result: No Definite Risk IRU A/P (1) Respiratory failure, acute and chronic Qualifiers: Respiratory failure complication: hypoxia Qualified Code(s): J96.21 - Acute and chronic respiratory failure with hypoxia Current visit: Yes Status: Acute Patient continues to demonstrate respiratory failure, primarily chronic at this time. He requires oxygen 24 hours daily. (2) Debility Current visit: Yes Status: Acute Continues to demonstrate debility. We encouraged him to continue his exercises while at home. He has improved. He declines home health intervention at this time. (3) Morbid obesity Current visit: Yes Status: Chronic He has been instructed in appropriate dietary management. We are encouraging 1 pound weekly weight loss by consuming fewer calories. (4) DM (diabetes mellitus), type 2 with neurological complications Current visit: Yes Status: Chronic (5) Acute kidney injury Current visit: Yes Status: Acute (6) Back pain at L4-L5 level Current visit: Yes Status: Chronic DVT Prophylaxis: Xarelto Resuscitation Status: Full Code - Course Hospital Course: Julian Killian MD: 12/09/16 11:17 Therapies are addressing his poor exercise tolerance, endurance, and myopathy. He is able to walk 12 feet today with standby assist. Stairs require contact- guard assist. Dietitian is involved with regard to meal planning and recommendations. Appreciate hospitalists involvement. 12/13/16 09:53 Creatinine is acutely increased related to diuresis most likely. Bumex has been decreased in this regard. Continues to complain of pain in the ankle and back at a 5-6 level. Decided to keep fentanyl patch were we are. Please see above discussion. He is progressing with therapy and is ambulatory distance is improved. Barriers to discharge included his dyspnea, poor conditioning and his pain. 12/14/16 10:56 Has developed 3 episodes of diplopia (vertically). Therapy has evaluated him and feels as though he has ocular cervical nystagmus. This could be a fracture. No other evidence of underlying neurologic changes noted. Continues to improve with therapy and is walking 18 feet with assistance of 1. Complains of right arm burning aching and coldness. Exam is negative. Question cold extremity side effect of beta florencio. 12/15/16 11:00 Patient continues to improve with toilet transfers and ambulatory distance of 40 feet. Continues to have acute on chronic respiratory failure and chronic dyspnea with deconditioning. Continue working with patient for another 2-3 days. Right arm burning discomfort resolved. - Interventions to Obtain Goals PT Treatment Plan: Balance/Proprioception, Functional Activities, Gait Training , Patient/Family Education, Therapeutic Exercise OT Treatment Plan: ADL (Basic Care), Balance Training, IADL, Pt./Family Education, Ther. Exercise for ADL
--- NOTE | 2016-12-17 11:12 | Discharge Instructions ---
Discharge Plan - Med Rec/Dispo Referrals/Follow Up: Terrie Mtz Dr [Other] (Dr. Lillie Mtz on 01/07/17 at 9:15-Check-in. 2 hr appt. . [facility] [address] [place] [address] This appt. was made for patient, prior to transferring to IRU.) Eduardo Payton DO [Family Provider] - (Sanju Oliva, SYSTEM ARCHITECT on 12/23/16 at 1:45 pm for Hosp. follow-up. . [facility]. Will need BMP lab at that time. [address] [place] [id number] ) Additional Instructions: Will need a BMP at follow up apt on 12/23. Prescriptions: New Senna + Docusate [Senna Plus Tablet] 1 tab PO BID tablet FentaNYL PATCH [Duragesic Patch] 25 mcg TD Q72H #5 patch Bumetanide Tab [Bumex] 0.5 mg PO DAILY #30 tablet Continue Duloxetine HCl [Cymbalta] 120 mg PO HS #0 Nitroglycerin [Nitrostat] 0.4 mg SL Q5M PRN PRN Reason: Chest Pain Artificial Tears [Tears Naturale] 2 drop OP TID PRN PRN Reason: dry eye Mineral Oil/Petrolatum,White [Refresh P.m. Ointment] 3.5 gm OP PRN PRN PRN Reason: dry eye Tizanidine [Zanaflex] 4 mg PO Q8H Rivaroxaban [Xarelto] 15 mg PO DAILY Calcium 500 + D [Os Orion-D 500] 1 tab PO TID Levothyroxine Tab [Synthroid] 25 mcg PO ACB Albuterol/Ipratropium [Duoneb] 3 ml AEROSOL Q2HPRN PRN PRN Reason: Shortness Of Air Ascorbate Calcium [Vitamin C] 500 mg PO DAILY Ipratropium/Albuterol [Combivent Respimat Inhaler] 1 puff INH Q4H PEG 3350 17gm PACKET [Miralax] 17 gm PO BID Metoprolol Tartrate [Lopressor] 50 mg PO BID Gabapentin [Neurontin] 600 mg PO BID Vitamin E 400 unit PO DAILY Oxycodone/APAP 10/325 [Percocet 10/325] 1 tab PO QID #56 tablet Discontinued Glucagon [Glucagen] 1 mg IM PRN PRN PRN Reason: Hypoglycemia Insulin Lispro [Humalog] 0 unit SQ ACHS Dextrose [Glutose 15] 15 gm PO PRN PRN PRN Reason: Hypoglycemia No Action Albuterol/Ipratropium [Duoneb] 3 ml AEROSOL TID Novolog Mix 70/30 Sq [Novolog Mix 70-30] 85 unit SQ BID FentaNYL PATCH [Duragesic Patch] 25 mcg TD Q72H Albuterol Inhaler [Ventolin Hfa 90 mcg/actuation] 2 puff INH PRN PRN PRN Reason: Shortness Of Air Discharge Instructions/Outpatient Orders: Final Provider Discharge Instructions Location: Determined By Patient - Disposition 01 Discharged Home, Self-Care
--- NOTE | 2016-12-17 11:46 | Discharge Summary ---
Discharge Information Date of admission: 12/08/16 13:50 Anticipated date of discharge: 12/17/16 Attending Physician: Julian Killian MD Primary care physician: Eduardo Payton DO Consults: 12/08/16 15:48 Physician Consult [CONS] Routine Consulting Provider: Mc Mclaughlin Reason For Exam: Medical management Ordering Provider has Notified Group Captain: No - Discharge Diagnosis Discharge Diagnosis: 1. Acute on chronic hypoxemic respiratory failure 2. Recent pulmonary infection/bronchitis 3. Chronic ankle pain 4. Chronic back pain 5. Acute on chronic diastolic heart failure 6. Acute Kidney injury-improved 7. Obstructive sleep apnea 8. Morbid obesity - Laboratory Labs: 12/09/16 04:33 12/17/16 04:26 History of Present Illness HPI: 12/17/16 11:45 Maxi is a very pleasant 56-year-old gentleman with recent history of pulmonary infection. He does have history of pulmonary emboli as well prior to all of this. He is on chronic anticoagulant therapy prior to this visit. Most recently he developed worsening shortness of breath cough and sputum and was seen by his physician. He underwent CT scan of the chest failing to reveal evidence of pulmonary embolus. The patient was subsequently evaluated and sent to [facility]. During that hospitalization he was apparently treated with antibiotics and breathing treatments and did improve. However, he noted significant debility. His ability to ambulate was markedly reduced. He does live with his at home and his 5-year-old grandson for whom he cares during the daytime. He was felt to be an excellent candidate for acute inpatient rehabilitation and required physical therapy, occupational therapy as well as 24 rehabilitation nursing and medical management for his complex medical conditions. 12/17/16 11:47 Hospital Course This is a general summary of the patient's hospital course. For more details refer to the complete medical record. Patient was admitted to the acute rehabilitation floor after being treated in [place] for a pulmonary infection. Chest radiograph here revealed primarily chronic changes and did not demonstrate a pneumonia. Continued to cough up discolored sputum and continued to have significant dyspnea with activity. He is on chronic anticoagulation and a recent CT scan failed to reveal evidence of bony embolus. He underwent 3 hours of therapy 5 days weekly. Occupational therapy noted improvement with transfers from standby assistance to modified independent. He was independent for grooming and eating but continued to require assistance for toilet transfers. Physical therapy noted improvement in transfers also from standby assistance to modified independent functioning. His ambulatory distance improved from about 20 feet upon admission to 124 feet subsequently. He was total assistance initially improving to standby assistance. The patient's medical problems were managed by the hospitalists as well as Dr. Killian. He continued to require 24-hour oxygen therapy due to his chronic hypoxemic respiratory failure. In addition pain was managed with topical fentanyl patch 25 g every 3 days plus 4 times daily oxycodone. He does work with the pain management team as an outpatient as well. He was noted to have congestive heart failure likely diastolic acute on chronic. Echocardiogram had not shown evidence of wall motion abnormalities nor reduced ejection fraction. He was treated with increased doses of Bumex. This did result in some acute kidney injury which was trending back towards normal. His weight was decreased and his respiratory status improved with this regimen. The patient had been treated with a multidisciplinary approach. We recommended and offered home health physical therapy but he declines. He feels as though he can continue the current exercises at home as he has been doing here. Therefore he was dismissed in improved condition and stable medically on medications as noted. Follow-up will be by his primary care physician. (Total time spent on patient evaluation, counseling, preparation of records and orders was from 11:20 AM -11:55 AM) Hospital course: 12/11/16 Chest x-ray and labs ordered because of conversational dyspnea and degree of edema. Suspect he will need diuresis. Continue daily weights. Reassess BMP because of recent acute kidney injury. Blood sugars have been under fairly good control on NovoLog 70/30 twice a day. He had a couple hypoglycemic readings earlier in his rehabilitation course, but this has improved. CXR reviewed - pulmonary congestion. Layering of over right hemidiaphragm - Dr. Wadsworth reviewed CXR from [facility], which showed elevation of right hemidiaphragm but we were unable to appreciate the layering appearance seen on today's 2-view film. BMP - renal function fairly intact but K is 5.5. Dr. Wadsworth suspects proximal ATN (frequently seen in diabetics who are taken off diuretics). If no improvement by tomorrow and bicarb is abnormal, we could start Bumex + bicarb gtt. Give Bumex 2 mg PO now and start 1 mg BID tomorrow. Recheck BMP in am. Discussed with Chiara; agree with diuresis, will monitor outputs after 2 mg dose today (po; he does not have IV access currently). Will order 1 mg BID bumex for tomorrow and can increase to 2 mg if needed. 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 Will monitor and adjust tomorrow, recheck labs in AM and follow weights and outputs. 12/12/16 Symptomatic and clinical improvement post oral diuresis with Bumex. Today we'll start 1 mg and mg at 1400. He reports his take Bumex 2 mg at home on a when necessary basis, which actually equated to about every other day. Potassium has returned to normal value. Post Bumex dosing. It is 4.8. Creatinine bumped slightly to 1.6. Bicarbonate also increased. Dr. Wadsworth has already ordered Diamox BID. Sodium has increased to 145. Will repeat BMP in am to monitor renal function, bicarb, and sodium level. May need to adjust diuretic dosing. Overall, BGM under fairly good control (one erroneous reading >200 yesterday before lunch). Change frequency of BGM to fasting and 2 hours PP. 12/13/16 Symptomatic improvement with diuresis, weight decreased from 204.8 to 197.4 kg. Breathing much easier and lungs are clear today. However, creatinine increased from 1.6 to 2.1 and Bicarb went up from 37 to 39 despite addition of diamox yesterday. Discussed with Dr. Wadsworth - recommends holding Bumex and diamox and rechecking BMP in am. Na still slightly high at 145 - monitor for now. BGM changed to postprandial - elevations noted after breakfast (218) and after lunch (160). Will follow today to determine if increasing morning dose of insulin 70/30 may be helpful. 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 Treatable with therapy via accommodation. Creatinine and bicarb are improving. Continue to hold Bumex and Diamox. Monitor wts and follow BMP. Blood sugars and blood pressures stable. 12/15/16 Continue with accommodation therapy for cervical ocular dizziness Continue to hold Bumex and Diamox. Creatinine is improving, potassium and sodium are stable. Weights are stable. Blood sugars and blood pressures stable. 12/16/16 -Weight is increasing. (197.5 yesterday to 201 kg today.) Will add back in low dose Bumex. Start Bumex 0.5 milligram daily. He states at home he usually takes 2 mg every 3 days -Recheck BMP tomorrow morning. -Blood sugars have averaged upper 100s to low 200s. Increase his NovoLog 70/30 from 85U to 87 units twice a day. Discharge Plan - Med Rec/Dispo Referrals/Follow Up: Terrie Mtz Dr [Other] (Dr. Lillie Mtz on 01/07/17 at 9:15-Check-in. 2 hr appt. . [facility] [address] [place] [address] This appt. was made for patient, prior to transferring to IRU.) Eduardo Payton DO [Family Provider] - (Sanju Oliva, MONIE on 12/23/16 at 1:45 pm for Hosp. follow-up. . [facility]. Will need BMP lab at that time. [address] [place] [id number] ) Additional Instructions: Will need a BMP at follow up apt on 12/23. Prescriptions: New Senna + Docusate [Senna Plus Tablet] 1 tab PO BID tablet FentaNYL PATCH [Duragesic Patch] 25 mcg TD Q72H #5 patch Bumetanide Tab [Bumex] 0.5 mg PO DAILY #30 tablet Continue Duloxetine HCl [Cymbalta] 120 mg PO HS #0 Nitroglycerin [Nitrostat] 0.4 mg SL Q5M PRN PRN Reason: Chest Pain Artificial Tears [Tears Naturale] 2 drop OP TID PRN PRN Reason: dry eye Mineral Oil/Petrolatum,White [Refresh P.m. Ointment] 3.5 gm OP PRN PRN PRN Reason: dry eye Tizanidine [Zanaflex] 4 mg PO Q8H Rivaroxaban [Xarelto] 15 mg PO DAILY Calcium 500 + D [Os Orion-D 500] 1 tab PO TID Levothyroxine Tab [Synthroid] 25 mcg PO ACB Albuterol/Ipratropium [Duoneb] 3 ml AEROSOL Q2HPRN PRN PRN Reason: Shortness Of Air Ascorbate Calcium [Vitamin C] 500 mg PO DAILY Ipratropium/Albuterol [Combivent Respimat Inhaler] 1 puff INH Q4H PEG 3350 17gm PACKET [Miralax] 17 gm PO BID Metoprolol Tartrate [Lopressor] 50 mg PO BID Gabapentin [Neurontin] 600 mg PO BID Vitamin E 400 unit PO DAILY Oxycodone/APAP 10/325 [Percocet 10/325] 1 tab PO QID #56 tablet Discontinued Glucagon [Glucagen] 1 mg IM PRN PRN PRN Reason: Hypoglycemia Insulin Lispro [Humalog] 0 unit SQ ACHS Dextrose [Glutose 15] 15 gm PO PRN PRN PRN Reason: Hypoglycemia No Action Albuterol/Ipratropium [Duoneb] 3 ml AEROSOL TID Novolog Mix 70/30 Sq [Novolog Mix 70-30] 85 unit SQ BID FentaNYL PATCH [Duragesic Patch] 25 mcg TD Q72H Albuterol Inhaler [Ventolin Hfa 90 mcg/actuation] 2 puff INH PRN PRN PRN Reason: Shortness Of Air Discharge Instructions/Outpatient Orders: Final Provider Discharge Instructions Location: Determined By Patient
[2016-12-17 16:35] VITALS: BP 134/78; PULSE 92; TEMP 97.8
[2016-12-17] MEDS: RIVAROXABAN 15 MG TABLET PO SCH (16:39)
[2016-12-17 17:20] VITALS: RESP 18; O2SAT 96
== END 2016-12-17 17:50 | disposition home or self-care (01) | DRG 91 ==
PROVIDERS: ADMIT Internal Medicine; ATTEND Internal Medicine